=== PATIENT | female | born 1955 | race Caucasian/White ===

== ENCOUNTER 2019-02-24 07:00 | Day surgery (SDC) | payer MEDICARE ==
[2019-02-24] MEDS ORDERED: Sodium Chloride 0.9% 1,000 ML IV SCH (07:30)
[2019-02-24] MEDS ORDERED: Midazolam 1 MG/ML 2 ML SDV ONE (07:38)
[2019-02-24] MEDS ORDERED: fentaNYL 100 MCG/2 ML SDV ONE (07:38)
[2019-02-24] MEDS ORDERED: Propofol 200 MG/20 ML SDV ONE ×2 (07:38→08:28)
--- NOTE | 2019-02-24 12:42 | OR ---
DATE OF PROCEDURE: 02/24/2019 SURGEON: Cal Vieira MD PROCEDURE: Colonoscopy. FINDINGS: 1. Sigmoid colon polyp, completely removed using snare. 2. Diverticulosis, mild, diffuse throughout entire colon. COMPLICATIONS: None. 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 ANESTHESIA: MAC. PREOPERATIVE DIAGNOSIS: Family history of colorectal cancer. POSTOPERATIVE DIAGNOSIS: Family history of colorectal cancer. RISKS: Risks, benefits, alternatives, and limitations including, but not limited to, infection, bleeding, and perforation were explained to the patient who wished to proceed. PROCEDURE IN DETAIL: The patient was placed in left lateral decubitus position. Digital rectal exam was performed without abnormality. The scope was introduced and advanced atraumatically to the ileocecal valve. Photo was taken of the appendiceal orifice. The scope was brought back to the ascending, transverse, descending colon, and retroflexed. The aforementioned polyp was then identified and completely removed using snare. Diverticulosis was described as mild, diffuse throughout the entire colon. No evidence of diverticulitis or any other abnormality. No abnormality on retroflex. The patient tolerated the procedure well. Cal Vieira MD /[id number]
== END 2019-02-24 10:20 | disposition home or self-care (01) ==
LOC: JP.SDS 07:00
PROVIDERS: ATTEND Surgery
DX: Z12.11 Encounter for screening for malignant neoplasm of colon (principal); K57.30 Diverticulosis of large intestine without perforation or abscess without bleeding; K63.5 Polyp of colon; F17.210 Nicotine dependence, cigarettes, uncomplicated; J44.9 Chronic obstructive pulmonary disease, unspecified; Z80.0 Family history of malignant neoplasm of digestive organs
CPT/HCPCS: 45385; J2250; J2704; J3010; J7030; 88305

== ENCOUNTER 2019-07-25 11:46 | Inpatient (IN) | payer MEDICARE ==
[2019-07-25] MEDS ORDERED: Acetaminophen 325 MG Tab PO PRN (12:36)
[2019-07-25] MEDS ORDERED: Ondansetron 4 MG/2 ML SDV IV PRN (12:36)
[2019-07-25] MEDS ORDERED: Magnesium Hydroxide 400 MG/5 ML Susp 30 ML Cup PO PRN (12:36)
[2019-07-25] MEDS ORDERED: Ondansetron 4 MG Tab.DIS PO PRN (12:36)
[2019-07-25] MEDS ORDERED: Sodium Chloride 0.9% 10 ML Syringe FLUSH PRN (12:36)
[2019-07-25] MEDS ORDERED: Melatonin 3 MG Tab PO PRN (12:36)
[2019-07-25] MEDS ORDERED: LORazepam 2 MG/ML SDV IVPUSH PRN (12:36)
[2019-07-25] MEDS ORDERED: Benzonatate 100 MG Cap PO PRN (12:39)
[2019-07-25] MEDS ORDERED: Naproxen 250 MG Tab PO PRN (12:39)
[2019-07-25] MEDS ORDERED: guaiFENesin/Dextromethorphan 100-10 MG/5 ML Soln 10 ML Cup PO PRN (12:39)
[2019-07-25] MEDS ORDERED: predniSONE 20 MG Tab PO ONE (12:41)
[2019-07-25] MEDS ORDERED: Azithromycin 250 MG Tab PO SCH (12:45)
--- NOTE | 2019-07-25 12:46 | PCM.HP.2 ---
H&P History of Present Illness - General Date of Service: 07/25/19 Admit Problem/Dx: Admission Diagnosis/Problem Admission Diagnosis/Problem Right lower lobe pneumonia Source of Information: Patient, Provider History Limitations: Reports: No Limitations - History of Present Illness Initial Comments - Free Text/Narative: CC: I [facility] HPI: Balbina presents as a direct admission from the clinic. She presented there today with complaints of sinus congestion, shortness of breath and productive cough. Symptoms have been present for approximately 1 week and have been slowly getting worse. She has had increasing amounts of sputum with a variety of different colors including green, huber and yellow. Shortness of breath has progressed to the point that she is short of breath with any activity. She is mildly short of breath even at rest. She does have home oxygen which she normally only uses at night but has been using it 24 hours a day for the past couple of days. No complaints of chest pain. No obvious subjective or objective fevers that she is experienced. She does have some nausea but no vomiting. Appetite is okay but energy is significantly decreased. No change in bowel or bladder habits. She has diffuse arthralgias that are slightly worse than baseline but no myalgias. had similar but much more mild symptoms just over a week ago and has resolved very quickly. She was seen in the clinic and noted to be hypoxic even with supplemental oxygen. White count is mildly elevated. Chest x-ray suggested several small patchy areas of possible pneumonia. She was wheezing. She was sent for admission and further management. - Related Data Allergies/Adverse Reactions: Allergies Allergy/AdvReac Type Severity Reaction Status Date / Time adhesive tape Allergy Rash Verified 02/24/19 07:22 ciprofloxacin Allergy Indigestion Verified 02/24/19 07:22 ibandronate sodium Allergy Other Verified 02/24/19 07:22 [From Boniva] Iodinated Contrast Media Allergy Hives Verified 07/25/19 11:51 pseudoephedrine Allergy Tachycardia Verified 02/24/19 07:22 Home Medications: Home Meds Albuterol Sulfate [Proair Hfa] 1 - 2 puff IH Q4H PRN 02/22/19 [History] Albuterol/Ipratropium [DuoNeb 3.0-0.5 MG/3 ML] 3 ml INH Q6H PRN 02/22/19 [ History] Aspirin [Halfprin] 81 mg PO DAILY 02/22/19 [History] Cholecalciferol (Vitamin D3) [Vitamin D3] 5,000 unit PO .4X/WEEK 02/22/19 [ History] Clobetasol Propionate [Temovate Cream] 1 applic TP BID 02/22/19 [History] Gabapentin [Neurontin] 300 mg PO BEDTIME 02/22/19 [History] Hydroxychloroquine Sulfate [Plaquenil] 200 mg PO SUSA 02/22/19 [History] Hydroxychloroquine [Plaquenil] 400 mg PO MOTUWETHFR 02/22/19 [History] Loratadine [Claritin] 10 mg PO DAILY 02/22/19 [History] guaiFENesin [Guaifenesin] 400 mg PO DAILY 02/22/19 [History] Past Medical History HEENT History: Reports: Allergic Rhinitis Respiratory History: Reports: Bronchitis, Recurrent, COPD, Pneumonia, Recurrent , Other (See Below) Other Respiratory History: home O2 at night Gastrointestinal History: Reports: Hemorrhoids Genitourinary History: Reports: UTI, Recurrent RN PSYCHIATRIC History: Reports: Musculoskeletal History: Reports: Arthritis, RA Neurological History: Reports: Headaches, Chronic Immunologic History: Reports: Other (See Below) Other Immunologic History: Lupus Dermatologic History: Reports: Other (See Below) Other Dermatologic History: dry skin, cracking on hands and foot - Infectious Disease History Infectious Disease History: Reports: Chicken Pox - Past Surgical History HEENT Surgical History: Reports: Cataract Surgery, Tonsillectomy GI Surgical History: Reports: Appendectomy, Cholecystectomy, Lysis of Adhesions Female Surgical History: Reports: Tubal Ligation Social & Family History - Family History Respiratory: Reports: COPD - Tobacco Use Smoking Status *Q: Former Smoker Tobacco Use Within Last Twelve Months: Cigarettes Used Tobacco, but Quit: Yes - Caffeine Use Caffeine Use: Reports: Coffee - Alcohol Use Alcohol Use History: No - Recreational Drug Use Recreational Drug Use: No Drug Use in Last 12 Months: No H&P Review of Systems - Review of Systems: Review Of Systems: See Below Free Text/Narrative: A complete 12 point review of systems was obtained. Pertinent positives and negatives are noted in the history of present illness. All other systems were reviewed and were negative except as noted. Exam - Exam Exam: See Below - Vital Signs Vital Signs: Last Vital Signs Temp 36.8 C 07/25/19 12:03 Pulse 98 07/25/19 12:03 Resp 18 07/25/19 12:03 BP 158/85 H 07/25/19 12:03 Pulse Ox 98 07/25/19 12:03 - Exam Quality Assessment: Supplemental Oxygen General: Alert, Oriented, Cooperative. No: Mild Distress HEENT: Conjunctiva Clear, Mucosa Moist & [place]. No: Scleral Icterus Neck: Supple, Trachea Midline. No: Lymphadenopathy Lungs: Normal Respiratory Effort, Crackles (right lung base), Wheezing (mild diffuse inspiratory and moderate diffuse expiratory ) Cardiovascular: Regular Rate, Regular Rhythm. No: Systolic Murmur GI/Abdominal Exam: Normal Bowel Sounds, Soft, Non-Tender, No Distention Back Exam: Normal Inspection, Full Range of Motion Extremities: No Pedal Edema. No: Increased Warmth Peripheral Pulses: 2+: Dorsalis Pedis (L), Dorsalis Pedis (R) Skin: Warm, Dry Neuro Extensive - Mental Status: Alert, Oriented x3, Nl Response to Commands Neuro Extensive - Motor, Sensory, Reflexes: No: Dysarthria, Abnormal Motor, Tremor Psychiatric: Alert, Normal Affect - Patient Data Lab Results Last 24 hrs: WBC 12,000 Creatinine 0.8 Potassium 4.4 Imaging Impressions Last 24 hrs: CXR-faint right-sided patchy opacities most notable in the right lower lateral chest. Also a small area on the left.. No effusions. No obvious masses Sepsis Event Note - Focused Exam Vital Signs: Vital Signs Temp Pulse Resp BP Pulse Ox 07/25/19 12:03 36.8 C 98 18 158/85 H 98 Date Exam was Performed: 07/25/19 Time Exam was Performed: 13:42 *Q Meaningful Use (ADM) - VTE Risk Assess *Q Each Risk Factor Represents 1 Point: Serious lung disease including pneumonia, Abnormal Pulmonary Function (COPD) Total Score 1 Point Risk Factors: 2 Each Risk Factor Represents 2 Points: Age 60 - 74 Years Total Score 2 Point Risk Factors: 2 Each Risk Factor Represents 3 Points: None Total Score 3 Point Risk Factors: 0 Each Risk Factor Represents 5 Points: None Total Score 5 Point Risk Factors: 0 Venous Thromboembolism Risk Factor Score *Q: 4 - Problem List (1) Right lower lobe pneumonia SNOMED Code(s): 697085095 ICD Code: J18.9 - PNEUMONIA, UNSPECIFIED ORGANISM Status: Acute Current Visit: Yes Qualifiers: Pneumonia type: due to unspecified organism Qualified Code(s): J18.9 - Pneumonia, unspecified organism (2) Acute exacerbation of chronic obstructive pulmonary disease (COPD) SNOMED Code(s): 887540818 ICD Code: J44.1 - CHRONIC OBSTRUCTIVE PULMONARY DISEASE W (ACUTE) EXACERBATION Status: Acute Current Visit: Yes (3) Acute respiratory failure with hypoxia SNOMED Code(s): 84956961, 571963512 ICD Code: J96.01 - ACUTE RESPIRATORY FAILURE WITH HYPOXIA Status: Acute Current Visit: Yes (4) SLE (systemic lupus erythematosus) SNOMED Code(s): 46695673 ICD Code: M32.9 - SYSTEMIC LUPUS ERYTHEMATOSUS, UNSPECIFIED Status: Chronic Current Visit: Yes Qualifiers: Systemic lupus erythematosus type: other Systemic lupus erythematosus organ involvement: unspecified Qualified Code(s): M32.8 - Other forms of systemic lupus erythematosus (5) Rheumatoid arthritis SNOMED Code(s): 78843019 ICD Code: M06.9 - RHEUMATOID ARTHRITIS, UNSPECIFIED Status: Chronic Current Visit: Yes Qualifiers: Rheumatoid arthritis location: multiple sites Rheumatoid factor presence: unspecified presence Qualified Code(s): M06.9 - Rheumatoid arthritis, unspecified Problem List Initiated/Reviewed/Updated: Yes Orders Last 24hrs: Active Orders 24 hr Category Date Time Status Patient Status [ADT] Routine ADT 07/25/19 12:36 Ordered Antiembolic Devices [RC] .Routine Care 07/25/19 12:36 Ordered Intake and Output [RC] QSHIFT Care 07/25/19 12:36 Ordered Notify Provider Vital Signs [RC] ASDIRECTED Care 07/25/19 12:36 Ordered Oxygen Therapy [RC] PRN Care 07/25/19 12:36 Ordered RT Aerosol Therapy [RC] ASDIRECTED Care 07/25/19 12:38 Ordered Up With Assistance [RC] ASDIRECTED Care 07/25/19 12:36 Ordered VTE/DVT Education [RC] Per Unit Routine Care 07/25/19 12:36 Ordered Vital Signs [RC] Q4H Care 07/25/19 12:36 Ordered Regular Diet [DIET] Diet 07/25/19 Dinner Active BASIC METABOLIC PANEL,BMP [CHEM] AM Lab 07/26/19 05:11 Ordered CBC W/O DIFF,HEMOGRAM [HEME] AM Lab 07/26/19 05:11 Ordered CULTURE RESPIRATORY + SMEAR [RM] Routine Lab 07/25/19 12:38 Ordered Acetaminophen [Tylenol] Med 07/25/19 12:36 Ordered 650 mg PO Q4H PRN Albuterol [Proventil Neb Soln] Med 07/25/19 12:36 Ordered 2.5 mg NEB Q4H PRN Albuterol/Ipratropium [DuoNeb 3.0-0.5 MG/3 ML] Med 07/25/19 16:00 Ordered 3 ml NEB QID Azithromycin [Zithromax] Med 07/25/19 12:45 Ordered 500 mg PO DAILY Benzonatate [Tessalon Perles] Med 07/25/19 12:39 Ordered 100 mg PO TID PRN Dextromethorphan/guaiFENesin [Robitussin DM] Med 07/25/19 12:39 Ordered 10 ml PO Q4H PRN Docusate Sodium/Sennosides [Senna Plus] Med 07/25/19 12:36 Ordered 1 tab PO BID PRN LORazepam [Ativan] Med 07/25/19 12:36 Ordered 0.5 mg IVPUSH Q4H PRN Lactobacillus Rhamnosus GG [Culturelle] Med 07/25/19 21:00 Ordered 1 cap PO BID Magnesium Hydroxide [Milk of Magnesia] Med 07/25/19 12:36 Ordered 30 ml PO Q12H PRN Melatonin Med 07/25/19 12:36 Ordered 9 mg PO BEDTIME PRN Naproxen [Naprosyn] Med 07/25/19 12:39 Ordered 250 mg PO Q12HR PRN Ondansetron [Zofran ODT] Med 07/25/19 12:36 Ordered 4 mg PO Q6H PRN Ondansetron [Zofran] Med 07/25/19 12:36 Ordered 4 mg IV Q6H PRN Sodium Chloride 0.9% [Saline Flush] Med 07/25/19 12:36 Ordered 10 ml FLUSH ASDIRECTED PRN cefTRIAXone [Rocephin] 1 gm Med 07/25/19 12:45 Ordered Sodium Chloride 0.9% [Normal Saline] 50 ml IV Q24H predniSONE Med 07/25/19 12:41 Once 40 mg PO ONETIME ONE predniSONE Med 07/26/19 08:00 Ordered 40 mg PO WITHBREAKFAST Saline Lock Insert [OM.PC] Urgent Oth 07/25/19 12:36 Ordered Sequential Compression Device [OM.PC] Routine Oth 07/25/19 12:36 Ordered Resuscitation Status Routine Resus Stat 07/25/19 12:36 Ordered Assessment/Plan Comment:: ASSESSMENT AND PLAN - Right lower lobe pneumonia-complicated by acute respiratory failure with hypoxia. She is very symptomatic with even minimal activity. She is hypoxic beyond baseline since she normally does not need oxygen during the day. Symptoms have progressed. No evidence for sepsis. Bacterial cause is suspected. -Antibiotic coverage with doxycycline and ceftriaxone -Scheduled and as needed nebulizers -Steroids as below -Sputum culture if able -Supplement oxygen as needed -Symptomatic management of cough Acute exacerbation of COPD-secondary to pneumonia as discussed above. Significant wheezing and poor airflow with hypoxia. -Prednisone 40 mg now and then 40 mg daily -Nebulizers and additional management as above SLE and RA-symptoms are near baseline at this time. Hopefully the prednisone will help decrease her arthralgias. -Continue hydroxychloroquine History of tobacco dependence-she has been abstinent for 9 days. Maintenance issues - - DVT prophylaxis -mechanical - GI prophylaxis -not indicated - Nutrition -regular - Lutz catheter -not indicated CODE STATUS -full code Admission justification -this patient will be admitted for inpatient services and is medically appropriate meeting medical necessity for inpatient admission as outlined in my documentation. I reasonably expect the patient will require inpatient services that span a period time over 2 midnights. I reasonably expect this patient to be discharged or transferred within 96 hours [facility]. Disposition -I would anticipate discharge home after the hospital stay Primary care physician -Dr Manuel Ramirez M.D. - Mortality Measure Prognosis:: Good
[2019-07-25] MEDS ORDERED: cefTRIAXone 1 GM in Sodium Chloride 0.9% 50 ML IV SCH (13:00)
[2019-07-25] MEDS ORDERED: Doxycycline 100 MG Cap PO SCH (13:45)
[2019-07-25] MEDS: cefTRIAXone 1 GM in Sodium Chloride 0.9% 50 ML IV SCH (13:55)
[2019-07-25] MEDS: Albuterol/Ipratropium 3.0-0.5 MG/3 ML Neb Soln NEB SCH ×2 (14:56→20:13)
[2019-07-25] MEDS: Doxycycline 100 MG Cap PO SCH ×2 (15:20→20:13)
[2019-07-25] MEDS: Hydroxychloroquine 200 MG Tab PO SCH (15:20)
[2019-07-25] MEDS: Gabapentin 300 MG Cap PO SCH (20:13)
[2019-07-25] MEDS: Lactobacillus Rhamnosus GG (Probiotic) Cap PO SCH (20:13)
[2019-07-26] MEDS: Albuterol 0.083% 2.5 MG/3 ML Neb Soln NEB PRN (04:20)
[2019-07-26] MEDS: Albuterol/Ipratropium 3.0-0.5 MG/3 ML Neb Soln NEB SCH ×4 (07:20→20:53)
[2019-07-26] MEDS: Lactobacillus Rhamnosus GG (Probiotic) Cap PO SCH ×2 (08:15→20:53)
[2019-07-26] MEDS: Loratadine 10 MG Tab PO SCH (08:15)
[2019-07-26] MEDS: Doxycycline 100 MG Cap PO SCH ×2 (08:15→20:53)
[2019-07-26] MEDS: Aspirin 81 MG Tab.EC PO SCH (08:15)
[2019-07-26] MEDS: predniSONE 20 MG Tab PO SCH (08:15)
[2019-07-26] MEDS: Hydroxychloroquine 200 MG Tab PO SCH (09:55)
--- NOTE | 2019-07-26 10:22 | PCM.PN ---
- General Info Date of Service: 07/26/19 Subjective Update: No acute events overnight. No fevers. Still requiring supplemental oxygen but less today than yesterday. Shortness of breath is better but still not anywhere near back to baseline. Cough is better. She was able to get some sleep. Appetite is good. Nausea is better but not quite resolved. Functional Status: Reports: Pain Controlled, Tolerating Diet - Review of Systems General: Reports: Weakness. Denies: Fever Pulmonary: Reports: Shortness of Breath - Patient Data Vitals - Most Recent: Last Vital Signs Temp 36.3 C 07/26/19 07:54 Pulse 79 07/26/19 07:54 Resp 18 07/26/19 07:54 BP 119/52 L 07/26/19 07:54 Pulse Ox 99 07/26/19 07:54 Weight - Most Recent: 71.9 kg I&O - Last 24 Hours: Intake & Output 07/25/19 07/26/19 07/26/19 22:59 06:59 14:59 Intake Total 50 240 300 Output Total 650 350 300 Balance -600 -110 0 Lab Results Last 24 Hours: Laboratory Results - last 24 hr 07/26/19 07/26/19 Range/Units 05:30 05:30 WBC 12.6 H (4.5-11.0) K/uL RBC 4.83 (3.30-5.50) M/uL Hgb 13.1 (12.0-15.0) g/dL Hct 42.2 (36.0-48.0) % MCV 87 (80-98) fL MCH 27 (27-31) pg MCHC 31 L (32-36) % Plt Count 263 (150-400) K/uL Sodium 141 (140-148) mmol/L Potassium 4.2 (3.6-5.2) mmol/L Chloride 102 (100-108) mmol/L Carbon Dioxide 34 H (21-32) mmol/L Anion Gap 9.2 (5.0-14.0) mmol/L BUN 10 (7-18) mg/dL Creatinine 0.8 (0.6-1.0) mg/dL Est Cr Clr Drug Dosing 60.31 mL/min Estimated GFR (MDRD) > 60 (>60) Glucose 152 H (74-106) mg/dL Calcium 8.5 (8.5-10.1) mg/dL Cory Results Last 24 Hours: Microbiology 07/25/19 18:06 Gram Stain - Final Sputum - Expectorated Med Orders - Current: Current Medications Acetaminophen (Tylenol) 650 mg PO Q4H PRN PRN Reason: Pain (Mild 1-3)/fever Albuterol (Proventil Neb Soln) 2.5 mg NEB Q4H PRN PRN Reason: Shortness Of Breath/wheezing Last Admin: 07/26/19 04:20 Dose: 2.5 mg Albuterol/Ipratropium (Duoneb 3.0-0.5 Mg/3 Ml) 3 ml NEB QIDRT [facility] Last Admin: 07/26/19 07:20 Dose: 3 ml Aspirin (Halfprin) 81 mg PO DAILY [facility] Last Admin: 07/26/19 08:15 Dose: 81 mg Benzonatate (Tessalon Perles) 100 mg PO TID PRN PRN Reason: Cough Doxycycline Hyclate (Vibramycin) 100 mg PO BID [facility] Last Admin: 07/26/19 08:15 Dose: 100 mg Gabapentin (Neurontin) 300 mg PO BEDTIME [facility] Last Admin: 07/25/19 20:13 Dose: 300 mg Guaifenesin/Dextromethorphan (Robitussin Dm) 10 ml PO Q4H PRN PRN Reason: Cough Hydroxychloroquine Sulfate (Plaquenil) 400 mg PO MoTuWeThFr@0900 [facility] Last Admin: 07/26/19 09:55 Dose: 400 mg Hydroxychloroquine Sulfate (Plaquenil) 200 mg PO SuSa@0900 [facility] Ceftriaxone Sodium 1 gm/ (Sodium Chloride) 50 mls @ 100 mls/hr IV Q24H [facility] Last Admin: 07/25/19 13:55 Dose: 100 mls/hr Lactobacillus Rhamnosus (Culturelle) 1 cap PO BID [facility] Last Admin: 07/26/19 08:15 Dose: 1 cap Loratadine (Claritin) 10 mg PO DAILY [facility] Last Admin: 07/26/19 08:15 Dose: 10 mg Lorazepam (Ativan) 0.5 mg IVPUSH Q4H PRN PRN Reason: Nausea/Vomiting Magnesium Hydroxide (Milk Of Magnesia) 30 ml PO Q12H PRN PRN Reason: Constipation Melatonin (Melatonin) 9 mg PO BEDTIME PRN PRN Reason: Sleep Naproxen (Naprosyn) 250 mg PO Q12H PRN PRN Reason: Joint pain/Headache Ondansetron HCl (Zofran Odt) 4 mg PO Q6H PRN PRN Reason: Nausea able to take PO Ondansetron HCl (Zofran) 4 mg IV Q6H PRN PRN Reason: Nausea/Vomiting Prednisone (Prednisone) 40 mg PO WITHBREAKFAST [facility] Last Admin: 07/26/19 08:15 Dose: 40 mg Senna/Docusate Sodium (Senna Plus) 1 tab PO BID PRN PRN Reason: Constipation Sodium Chloride (Saline Flush) 10 ml FLUSH ASDIRECTED PRN PRN Reason: Keep Vein Open Discontinued Medications Azithromycin (Zithromax) 500 mg PO DAILY [facility] Last Admin: 07/25/19 19:49 Dose: Not Given Prednisone (Prednisone) 40 mg PO ONETIME ONE Stop: 07/25/19 12:42 Last Admin: 07/25/19 13:55 Dose: 40 mg - Exam Quality Assessment: Supplemental Oxygen General: Alert, Oriented, Cooperative, No Acute Distress Lungs: Wheezing (mild end exp ). No: Normal Respiratory Effort (mild increased work of breathing ), Crackles Cardiovascular: Regular Rate, Regular Rhythm GI/Abdominal Exam: Soft, No Distention Extremities: No Pedal Edema Psy/Mental Status: Alert, Normal Affect Sepsis Event Note - Evaluation Sepsis Screening Result: No Definite Risk - Focused Exam Vital Signs: Vital Signs Temp Pulse Resp BP Pulse Ox 07/26/19 07:54 36.3 C 79 18 119/52 L 99 07/26/19 07:20 72 07/26/19 03:34 35.8 C L 72 18 114/56 L 99 07/25/19 22:32 36.4 C 76 16 134/70 98 Date Exam was Performed: 07/26/19 Time Exam was Performed: 10:36 - Problem List & Annotations (1) Right lower lobe pneumonia SNOMED Code(s): 881873268 Code(s): J18.9 - PNEUMONIA, UNSPECIFIED ORGANISM Status: Acute Current Visit: Yes Qualifiers: Pneumonia type: due to unspecified organism Qualified Code(s): J18.9 - Pneumonia, unspecified organism (2) Acute exacerbation of chronic obstructive pulmonary disease (COPD) SNOMED Code(s): 148049121 Code(s): J44.1 - CHRONIC OBSTRUCTIVE PULMONARY DISEASE W (ACUTE) EXACERBATION Status: Acute Current Visit: Yes (3) Acute respiratory failure with hypoxia SNOMED Code(s): 35345606, 470460361 Code(s): J96.01 - ACUTE RESPIRATORY FAILURE WITH HYPOXIA Status: Acute Current Visit: Yes (4) SLE (systemic lupus erythematosus) SNOMED Code(s): 65422933 Code(s): M32.9 - SYSTEMIC LUPUS ERYTHEMATOSUS, UNSPECIFIED Status: Chronic Current Visit: Yes Qualifiers: Systemic lupus erythematosus type: other Systemic lupus erythematosus organ involvement: unspecified Qualified Code(s): M32.8 - Other forms of systemic lupus erythematosus (5) Rheumatoid arthritis SNOMED Code(s): 58163174 Code(s): M06.9 - RHEUMATOID ARTHRITIS, UNSPECIFIED Status: Chronic Current Visit: Yes Qualifiers: Rheumatoid arthritis location: multiple sites Rheumatoid factor presence: unspecified presence Qualified Code(s): M06.9 - Rheumatoid arthritis, unspecified - Problem List Review Problem List Initiated/Reviewed/Updated: Yes - My Orders Last 24 Hours: My Active Orders 07/25/19 12:36 Patient Status [ADT] Routine Antiembolic Devices [RC] .Routine Intake and Output [RC] QSHIFT Notify Provider Vital Signs [RC] ASDIRECTED Oxygen Therapy [RC] PRN Up With Assistance [RC] ASDIRECTED VTE/DVT Education [RC] Per Unit Routine Vital Signs [RC] Q4H Acetaminophen [Tylenol] 650 mg PO Q4H PRN Albuterol [Proventil Neb Soln] 2.5 mg NEB Q4H PRN Docusate Sodium/Sennosides [Senna Plus] 1 tab PO BID PRN LORazepam [Ativan] 0.5 mg IVPUSH Q4H PRN Magnesium Hydroxide [Milk of Magnesia] 30 ml PO Q12H PRN Melatonin 9 mg PO BEDTIME PRN Ondansetron [Zofran ODT] 4 mg PO Q6H PRN Ondansetron [Zofran] 4 mg IV Q6H PRN Sodium Chloride 0.9% [Saline Flush] 10 ml FLUSH ASDIRECTED PRN Saline Lock Insert [OM.PC] Urgent Sequential Compression Device [OM.PC] Routine Resuscitation Status Routine 07/25/19 12:38 RT Aerosol Therapy [RC] ASDIRECTED 07/25/19 12:39 Benzonatate [Tessalon Perles] 100 mg PO TID PRN Dextromethorphan/guaiFENesin [Robitussin DM] 10 ml PO Q4H PRN Naproxen [Naprosyn] 250 mg PO Q12H PRN 07/25/19 13:30 cefTRIAXone [Rocephin] 1 gm Sodium Chloride 0.9% [Normal Saline] 50 ml IV Q24H 07/25/19 14:00 Hydroxychloroquine [Plaquenil] 400 mg PO MoTuWeThFr@0900 07/25/19 15:00 Albuterol/Ipratropium [DuoNeb 3.0-0.5 MG/3 ML] 3 ml NEB QIDRT Doxycycline [Vibramycin] 100 mg PO BID 07/25/19 18:06 CULTURE RESPIRATORY + SMEAR [RM] Routine 07/25/19 21:00 Gabapentin [Neurontin] 300 mg PO BEDTIME Lactobacillus Rhamnosus GG [Culturelle] 1 cap PO BID 07/25/19 Dinner Regular Diet [DIET] 07/26/19 08:00 predniSONE 40 mg PO WITHBREAKFAST 07/26/19 09:00 Aspirin [Halfprin] 81 mg PO DAILY Loratadine [Claritin] 10 mg PO DAILY 07/30/19 09:00 Hydroxychloroquine [Plaquenil] 200 mg PO SuSa@09 - Plan Plan:: ASSESSMENT AND PLAN - Right lower lobe pneumonia-complicated by acute respiratory failure with hypoxia. Shortness of breath is better. Still requiring supplemental oxygen. Gram stain of respiratory culture did show a few gram-positive cocci and gram- positive rods blood culture is pending. No fevers. -Antibiotic coverage with doxycycline and ceftriaxone -Scheduled and as needed nebulizers -Steroids as below -Follow-up sputum culture -Supplement oxygen as needed -Symptomatic management of cough Acute exacerbation of COPD-secondary to pneumonia as discussed above. Wheezing is much better today. -Prednisone 40 mg daily -Nebulizers and additional management as above SLE and RA-symptoms are near baseline at this time. -Continue hydroxychloroquine History of tobacco dependence-she has been abstinent for 10 days. Maintenance issues - - DVT prophylaxis -mechanical - GI prophylaxis -not indicated - Nutrition -regular Disposition -I would anticipate discharge home after the hospital stay Etienne Ramirez M.D.
[2019-07-26] MEDS: cefTRIAXone 1 GM in Sodium Chloride 0.9% 50 ML IV SCH (13:15)
[2019-07-26] MEDS: Gabapentin 300 MG Cap PO SCH (20:53)
[2019-07-27] MEDS: Albuterol 0.083% 2.5 MG/3 ML Neb Soln NEB PRN ×2 (01:55→13:31)
[2019-07-27] MEDS: Albuterol/Ipratropium 3.0-0.5 MG/3 ML Neb Soln NEB SCH ×5 (07:33→22:27)
[2019-07-27] MEDS: predniSONE 20 MG Tab PO SCH (08:14)
[2019-07-27] MEDS: Hydroxychloroquine 200 MG Tab PO SCH (08:15)
[2019-07-27] MEDS: Aspirin 81 MG Tab.EC PO SCH (08:15)
[2019-07-27] MEDS: Doxycycline 100 MG Cap PO SCH ×3 (08:15→22:27)
[2019-07-27] MEDS: Loratadine 10 MG Tab PO SCH (08:15)
[2019-07-27] MEDS: Lactobacillus Rhamnosus GG (Probiotic) Cap PO SCH ×3 (08:15→22:27)
--- NOTE | 2019-07-27 09:37 | PCM.PN ---
- General Info Date of Service: 07/27/19 Subjective Update: No acute events overnight. Shortness of breath continues to improve. Cough is less but still productive for green sputum. Able to do some walking but does get winded with activity. Still requiring supplemental oxygen. Respiratory culture growing normal respiratory tristen at this point. No nausea. Appetite has been good. No fevers. Functional Status: Reports: Pain Controlled, Tolerating Diet - Review of Systems General: Denies: Fever Pulmonary: Reports: Shortness of Breath, Cough - Patient Data Vitals - Most Recent: Last Vital Signs Temp 35.8 C L 07/27/19 07:00 Pulse 80 07/27/19 07:33 Resp 16 07/27/19 07:00 BP 135/70 07/27/19 07:00 Pulse Ox 90 L 07/27/19 07:00 Weight - Most Recent: 71.9 kg I&O - Last 24 Hours: Intake & Output 07/26/19 07/27/19 07/27/19 22:59 06:59 14:59 Output Total 400 500 600 Balance -400 -500 -600 Cory Results Last 24 Hours: Microbiology 07/25/19 18:06 Gram Stain - Final Sputum - Expectorated Respiratory Culture - Preliminary NORMAL RESPIRATORY TRISTEN 1 DAY Med Orders - Current: Current Medications Acetaminophen (Tylenol) 650 mg PO Q4H PRN PRN Reason: Pain (Mild 1-3)/fever Albuterol (Proventil Neb Soln) 2.5 mg NEB Q4H PRN PRN Reason: Shortness Of Breath/wheezing Last Admin: 07/27/19 01:55 Dose: 2.5 mg Albuterol/Ipratropium (Duoneb 3.0-0.5 Mg/3 Ml) 3 ml NEB QIDRT [facility] Last Admin: 07/27/19 07:33 Dose: 3 ml Aspirin (Halfprin) 81 mg PO DAILY [facility] Last Admin: 07/27/19 08:15 Dose: 81 mg Benzonatate (Tessalon Perles) 100 mg PO TID PRN PRN Reason: Cough Doxycycline Hyclate (Vibramycin) 100 mg PO BID [facility] Last Admin: 07/27/19 08:15 Dose: 100 mg Gabapentin (Neurontin) 300 mg PO BEDTIME [facility] Last Admin: 07/26/19 20:53 Dose: 300 mg Guaifenesin/Dextromethorphan (Robitussin Dm) 10 ml PO Q4H PRN PRN Reason: Cough Hydroxychloroquine Sulfate (Plaquenil) 400 mg PO MoTuWeThFr@0900 [facility] Last Admin: 07/27/19 08:15 Dose: 400 mg Hydroxychloroquine Sulfate (Plaquenil) 200 mg PO SuSa@0900 [facility] Ceftriaxone Sodium 1 gm/ (Sodium Chloride) 50 mls @ 100 mls/hr IV Q24H [facility] Last Admin: 07/26/19 13:15 Dose: 100 mls/hr Lactobacillus Rhamnosus (Culturelle) 1 cap PO BID [facility] Last Admin: 07/27/19 08:15 Dose: 1 cap Loratadine (Claritin) 10 mg PO DAILY [facility] Last Admin: 07/27/19 08:15 Dose: 10 mg Lorazepam (Ativan) 0.5 mg IVPUSH Q4H PRN PRN Reason: Nausea/Vomiting Magnesium Hydroxide (Milk Of Magnesia) 30 ml PO Q12H PRN PRN Reason: Constipation Melatonin (Melatonin) 9 mg PO BEDTIME PRN PRN Reason: Sleep Naproxen (Naprosyn) 250 mg PO Q12H PRN PRN Reason: Joint pain/Headache Ondansetron HCl (Zofran Odt) 4 mg PO Q6H PRN PRN Reason: Nausea able to take PO Ondansetron HCl (Zofran) 4 mg IV Q6H PRN PRN Reason: Nausea/Vomiting Prednisone (Prednisone) 40 mg PO WITHBREAKFAST [facility] Last Admin: 07/27/19 08:14 Dose: 40 mg Senna/Docusate Sodium (Senna Plus) 1 tab PO BID PRN PRN Reason: Constipation Sodium Chloride (Saline Flush) 10 ml FLUSH ASDIRECTED PRN PRN Reason: Keep Vein Open Discontinued Medications Azithromycin (Zithromax) 500 mg PO DAILY [facility] Last Admin: 07/25/19 19:49 Dose: Not Given Prednisone (Prednisone) 40 mg PO ONETIME ONE Stop: 07/25/19 12:42 Last Admin: 07/25/19 13:55 Dose: 40 mg - Exam Quality Assessment: Supplemental Oxygen General: Alert, Oriented, Cooperative, No Acute Distress Lungs: Crackles (few right lower lung ), Wheezing (mild end exp, mostly on the left ). No: Normal Respiratory Effort (mild increase in work of breathing. Purse lip breathing ) Cardiovascular: Regular Rate, Regular Rhythm GI/Abdominal Exam: Soft, No Distention Extremities: No Pedal Edema. No: Increased Warmth Skin: Warm, Dry Psy/Mental Status: Alert, Normal Affect Sepsis Event Note - Evaluation Sepsis Screening Result: Sepsis Risk - Focused Exam Vital Signs: Vital Signs Temp Pulse Resp BP Pulse Ox 07/27/19 07:33 80 07/27/19 07:00 35.8 C L 75 16 135/70 90 L 07/27/19 03:12 36.2 C 80 18 123/69 93 L 07/26/19 22:34 36.6 C 99 16 121/98 H 93 L Date Exam was Performed: 07/27/19 Time Exam was Performed: 10:31 - Problem List & Annotations (1) Right lower lobe pneumonia SNOMED Code(s): 476058580 Code(s): J18.9 - PNEUMONIA, UNSPECIFIED ORGANISM Status: Acute Current Visit: Yes Qualifiers: Pneumonia type: due to unspecified organism Qualified Code(s): J18.9 - Pneumonia, unspecified organism (2) Acute exacerbation of chronic obstructive pulmonary disease (COPD) SNOMED Code(s): 908237886 Code(s): J44.1 - CHRONIC OBSTRUCTIVE PULMONARY DISEASE W (ACUTE) EXACERBATION Status: Acute Current Visit: Yes (3) Acute respiratory failure with hypoxia SNOMED Code(s): 22916813, 274123601 Code(s): J96.01 - ACUTE RESPIRATORY FAILURE WITH HYPOXIA Status: Acute Current Visit: Yes (4) SLE (systemic lupus erythematosus) SNOMED Code(s): 62326203 Code(s): M32.9 - SYSTEMIC LUPUS ERYTHEMATOSUS, UNSPECIFIED Status: Chronic Current Visit: Yes Qualifiers: Systemic lupus erythematosus type: other Systemic lupus erythematosus organ involvement: unspecified Qualified Code(s): M32.8 - Other forms of systemic lupus erythematosus (5) Rheumatoid arthritis SNOMED Code(s): 37133070 Code(s): M06.9 - RHEUMATOID ARTHRITIS, UNSPECIFIED Status: Chronic Current Visit: Yes Qualifiers: Rheumatoid arthritis location: multiple sites Rheumatoid factor presence: unspecified presence Qualified Code(s): M06.9 - Rheumatoid arthritis, unspecified - Problem List Review Problem List Initiated/Reviewed/Updated: Yes - My Orders Last 24 Hours: My Active Orders 07/26/19 09:00 Aspirin [Halfprin] 81 mg PO DAILY Loratadine [Claritin] 10 mg PO DAILY 07/30/19 09:00 Hydroxychloroquine [Plaquenil] 200 mg PO SuSa@0900 - Plan Plan:: ASSESSMENT AND PLAN - Right lower lobe pneumonia-complicated by acute respiratory failure with hypoxia. Slowly improving but still hypoxic and wheezing. Moving better air today. -Antibiotic coverage with doxycycline and ceftriaxone -Scheduled and as needed nebulizers -Steroids as below -Follow-up sputum culture -Supplement oxygen as needed, wean as able -Symptomatic management of cough Acute exacerbation of COPD-secondary to pneumonia as discussed above. Wheezing is much better today but not resolved. -Prednisone 40 mg daily -Nebulizers and additional management as above SLE and RA-symptoms are near baseline at this time. -Continue hydroxychloroquine History of tobacco dependence-she has been abstinent for 10 days. Maintenance issues - - DVT prophylaxis -mechanical - GI prophylaxis -not indicated - Nutrition -regular Disposition -I would anticipate discharge home after the hospital stay, hopefully in the next day or so Etienne Ramirez M.D.
[2019-07-27] MEDS: cefTRIAXone 1 GM in Sodium Chloride 0.9% 50 ML IV SCH (13:31)
[2019-07-27] MEDS: Gabapentin 300 MG Cap PO SCH ×2 (19:40→22:27)
[2019-07-28] MEDS: Albuterol 0.083% 2.5 MG/3 ML Neb Soln NEB PRN (01:26)
[2019-07-28] MEDS: Albuterol/Ipratropium 3.0-0.5 MG/3 ML Neb Soln NEB SCH ×3 (07:38→14:40)
[2019-07-28] MEDS: predniSONE 20 MG Tab PO SCH (08:21)
[2019-07-28] MEDS: Loratadine 10 MG Tab PO SCH (08:21)
[2019-07-28] MEDS: Hydroxychloroquine 200 MG Tab PO SCH (08:22)
[2019-07-28] MEDS: Lactobacillus Rhamnosus GG (Probiotic) Cap PO SCH (08:22)
[2019-07-28] MEDS: Aspirin 81 MG Tab.EC PO SCH (08:22)
[2019-07-28] MEDS: Doxycycline 100 MG Cap PO SCH (08:23)
--- NOTE | 2019-07-28 10:08 | PCM.DCSUM1 ---
Discharge Summary - Hospital Course Brief History: Ms. Jorgensen is a 64-year-old woman who was admitted through the emergency department with weakness, shortness of breath, cough, hypoxia, secondary to right lung pneumonia and COPD exacerbation. - Discharge Data Discharge Date: 07/28/19 Discharge Disposition: Home, Self-Care 01 Condition: Fair - Referral to Home Health Primary Care Physician: Saira Navarro PA-C - Discharge Diagnosis/Problem(s) (1) Right lower lobe pneumonia SNOMED Code(s): 268677756 ICD Code: J18.9 - PNEUMONIA, UNSPECIFIED ORGANISM Status: Acute Current Visit: Yes Qualifiers: Pneumonia type: due to unspecified organism Qualified Code(s): J18.9 - Pneumonia, unspecified organism (2) Acute exacerbation of chronic obstructive pulmonary disease (COPD) SNOMED Code(s): 830677123 ICD Code: J44.1 - CHRONIC OBSTRUCTIVE PULMONARY DISEASE W (ACUTE) EXACERBATION Status: Acute Current Visit: Yes (3) Acute respiratory failure with hypoxia SNOMED Code(s): 40172993, 240889467 ICD Code: J96.01 - ACUTE RESPIRATORY FAILURE WITH HYPOXIA Status: Acute Current Visit: Yes (4) SLE (systemic lupus erythematosus) SNOMED Code(s): 03492900 ICD Code: M32.9 - SYSTEMIC LUPUS ERYTHEMATOSUS, UNSPECIFIED Status: Chronic Current Visit: Yes Qualifiers: Systemic lupus erythematosus type: other Systemic lupus erythematosus organ involvement: unspecified Qualified Code(s): M32.8 - Other forms of systemic lupus erythematosus (5) Rheumatoid arthritis SNOMED Code(s): 04696410 ICD Code: M06.9 - RHEUMATOID ARTHRITIS, UNSPECIFIED Status: Chronic Current Visit: Yes Qualifiers: Rheumatoid arthritis location: multiple sites Rheumatoid factor presence: unspecified presence Qualified Code(s): M06.9 - Rheumatoid arthritis, unspecified - Patient Summary/Data Hospital Course: Ms. Jorgensen presented as a direct admission from the clinic. She presented there with complaints of sinus congestion, shortness of breath and productive cough. Symptoms have been present for approximately 1 week and have been slowly getting worse. She has had increasing amounts of sputum with a variety of different colors including green, huber and yellow. Shortness of breath has progressed to the point that she is short of breath with any activity. She is mildly short of breath even at rest. She does have home oxygen which she normally only uses at night but has been using it 24 hours a day for the past couple of days. No complaints of chest pain. No obvious subjective or objective fevers that she is experienced. She does have some nausea but no vomiting. had similar but much more mild symptoms just over a week ago and has resolved very quickly. She was seen in the clinic and noted to be hypoxic even with supplemental oxygen. White count is mildly elevated. Chest x -ray suggested several small patchy areas of possible pneumonia. She was wheezing. She was sent for admission and further management. On admission blood cultures were obtained and she was started on IV antibiotic therapy with ceftriaxone and doxycycline. She received supplemental oxygen as needed as well as nebulizer therapy and glucocorticoids. IV fluids were given for hydration. Over the next few days of her hospital stay she gradually improved, with no significant temperature elevations prior to discharge and normalization of her white blood cell count. At the time of discharge she continued to require supplemental oxygen and qualified for home oxygen with an oxygen saturation of 86% on July 26. She will be discharged home with an additional 4 days of oral antibiotic therapy with cefdinir and doxycycline. She will receive 3 additional days of oral prednisone 40 mg p.o. daily. Follow- up appointment will be scheduled with her primary care provider within 1 week. Activity will be as tolerated and she will resume her usual diet. - Patient Instructions Diet: Usual Diet as Tolerated Activity: As Tolerated Other/Special Instructions: Please schedule follow-up appointment with primary care provider within 1 week. Arrange for home oxygen 2 L/min via nasal cannula. - Discharge Plan *PRESCRIPTION DRUG MONITORING PROGRAM REVIEWED*: Not Applicable *COPY OF PRESCRIPTION DRUG MONITORING REPORT IN PATIENT YESENIA: Not Applicable Prescriptions/Med Rec: Cefdinir 300 mg PO BID #8 capsule Doxycycline [Vibramycin] 100 mg PO BID #8 cap Lactobacillus Rhamnosus GG [Culturelle] 1 cap PO BID #60 cap predniSONE 40 mg PO DAILY #6 tablet Home Medications: Home Meds Albuterol Sulfate [Proair Hfa] 1 - 2 puff IH Q4H PRN 02/22/19 [History] Albuterol/Ipratropium [DuoNeb 3.0-0.5 MG/3 ML] 3 ml INH Q6H PRN 02/22/19 [ History] Aspirin [Halfprin] 81 mg PO DAILY 02/22/19 [History] Cholecalciferol (Vitamin D3) [Vitamin D3] 5,000 unit PO .4X/WEEK 02/22/19 [ History] Clobetasol Propionate [Temovate Cream] 1 applic TP BID 02/22/19 [History] Gabapentin [Neurontin] 300 mg PO BEDTIME 02/22/19 [History] Hydroxychloroquine Sulfate [Plaquenil] 200 mg PO SUSA 02/22/19 [History] Hydroxychloroquine [Plaquenil] 400 mg PO MOTUWETHFR 02/22/19 [History] Loratadine [Claritin] 10 mg PO DAILY 02/22/19 [History] guaiFENesin [Guaifenesin] 400 mg PO DAILY 02/22/19 [History] Cefdinir 300 mg PO BID #8 capsule 07/28/19 [Rx] Doxycycline [Vibramycin] 100 mg PO BID #8 cap 07/28/19 [Rx] Lactobacillus Rhamnosus GG [Culturelle] 1 cap PO BID #60 cap 07/28/19 [Rx] predniSONE 40 mg PO DAILY #6 tablet 07/28/19 [Rx] Oxygen Flow Rate (L/min): 2 Maintain SPO2% less than: 92 Maintain SpO2% greater than: 88 - Discharge Summary/Plan Comment DC Time >30 min.: No - Patient Data Vitals - Most Recent: Last Vital Signs Temp 98.7 F 07/28/19 07:00 Pulse 94 07/28/19 08:04 Resp 18 07/28/19 07:00 BP 129/68 07/28/19 07:00 Pulse Ox 89 L 07/28/19 07:00 Weight - Most Recent: 158 lb 8.198 oz I&O - Last 24 hours: Intake & Output 07/27/19 07/28/19 07/28/19 22:59 06:59 14:59 Intake Total 100 480 Output Total 600 500 Balance -600 100 -20 PRAVEEN Results - Last 24 hrs: Microbiology 07/25/19 18:06 Gram Stain - Final Sputum - Expectorated Respiratory Culture - Final NORMAL RESPIRATORY JEANNETTE 2 DAYS Med Orders - Current: Current Medications Acetaminophen (Tylenol) 650 mg PO Q4H PRN PRN Reason: Pain (Mild 1-3)/fever Albuterol (Proventil Neb Soln) 2.5 mg NEB Q4H PRN PRN Reason: Shortness Of Breath/wheezing Last Admin: 07/28/19 01:26 Dose: 2.5 mg Albuterol/Ipratropium (Duoneb 3.0-0.5 Mg/3 Ml) 3 ml NEB QIDRT [facility] Last Admin: 07/28/19 07:38 Dose: 3 ml Aspirin (Halfprin) 81 mg PO DAILY [facility] Last Admin: 07/28/19 08:22 Dose: 81 mg Benzonatate (Tessalon Perles) 100 mg PO TID PRN PRN Reason: Cough Doxycycline Hyclate (Vibramycin) 100 mg PO BID [facility] Last Admin: 07/28/19 08:23 Dose: 100 mg Gabapentin (Neurontin) 300 mg PO BEDTIME [facility] Last Admin: 07/27/19 22:27 Dose: Not Given Guaifenesin/Dextromethorphan (Robitussin Dm) 10 ml PO Q4H PRN PRN Reason: Cough Hydroxychloroquine Sulfate (Plaquenil) 400 mg PO MoTuWeThFr@0900 [facility] Last Admin: 07/28/19 08:22 Dose: 400 mg Hydroxychloroquine Sulfate (Plaquenil) 200 mg PO SuSa@0900 [facility] Ceftriaxone Sodium 1 gm/ (Sodium Chloride) 50 mls @ 100 mls/hr IV Q24H [facility] Last Admin: 07/27/19 13:31 Dose: 100 mls/hr Lactobacillus Rhamnosus (Culturelle) 1 cap PO BID [facility] Last Admin: 07/28/19 08:22 Dose: 1 cap Loratadine (Claritin) 10 mg PO DAILY [facility] Last Admin: 07/28/19 08:21 Dose: 10 mg Lorazepam (Ativan) 0.5 mg IVPUSH Q4H PRN PRN Reason: Nausea/Vomiting Magnesium Hydroxide (Milk Of Magnesia) 30 ml PO Q12H PRN PRN Reason: Constipation Melatonin (Melatonin) 9 mg PO BEDTIME PRN PRN Reason: Sleep Naproxen (Naprosyn) 250 mg PO Q12H PRN PRN Reason: Joint pain/Headache Ondansetron HCl (Zofran Odt) 4 mg PO Q6H PRN PRN Reason: Nausea able to take PO Ondansetron HCl (Zofran) 4 mg IV Q6H PRN PRN Reason: Nausea/Vomiting Prednisone (Prednisone) 40 mg PO WITHBREAKFAST [facility] Last Admin: 07/28/19 08:21 Dose: 40 mg Senna/Docusate Sodium (Senna Plus) 1 tab PO BID PRN PRN Reason: Constipation Sodium Chloride (Saline Flush) 10 ml FLUSH ASDIRECTED PRN PRN Reason: Keep Vein Open Discontinued Medications Azithromycin (Zithromax) 500 mg PO DAILY [facility] Last Admin: 07/25/19 19:49 Dose: Not Given Prednisone (Prednisone) 40 mg PO ONETIME ONE Stop: 07/25/19 12:42 Last Admin: 07/25/19 13:55 Dose: 40 mg - Exam Quality Assessment: Reports: Supplemental Oxygen, DVT Prophylaxis General: Reports: Alert, Oriented, Cooperative, Mild Distress Lungs: Reports: Decreased Breath Sounds, Wheezing. Denies: Rales, Rhonchi, Rub Cardiovascular: Reports: Regular Rate, Regular Rhythm, No Murmurs GI/Abdominal Exam: Soft, Non-Tender, No Organomegaly, No Distention Extremities: Non-Tender, No Pedal Edema
[2019-07-28] MEDS: cefTRIAXone 1 GM in Sodium Chloride 0.9% 50 ML IV SCH (13:23)
[2019-07-30] MEDS ORDERED: Hydroxychloroquine 200 MG Tab PO SCH (09:00)
== END 2019-07-28 16:30 | disposition home or self-care (01) | DRG 193 ==
LOC: JP.MS 11:46
PROVIDERS: ADMIT Internal Medicine; ATTEND Internal Medicine
DX: J18.9 Pneumonia, unspecified organism (principal); J96.01 Acute respiratory failure with hypoxia; J44.0 Chronic obstructive pulmonary disease with (acute) lower respiratory infection; J44.1 Chronic obstructive pulmonary disease with (acute) exacerbation; M32.9 Systemic lupus erythematosus, unspecified; M06.9 Rheumatoid arthritis, unspecified; M19.90 Unspecified osteoarthritis, unspecified site; Z98.49 Cataract extraction status, unspecified eye; Z90.49 Acquired absence of other specified parts of digestive tract; Z79.82 Long term (current) use of aspirin; Z79.899 Other long term (current) drug therapy; Z88.1 Allergy status to other antibiotic agents; Z91.09 Other allergy status, other than to drugs and biological substances; Z88.8 Allergy status to other drugs, medicaments and biological substances; Z87.891 Personal history of nicotine dependence
CPT/HCPCS: 36415; 80048; 85027; 87070; 87205; 94640; A9270-GY; J0696; J7050; J7620-GY

== ENCOUNTER 2021-11-19 19:17 | Emergency (ER) | payer MEDICARE ==
[2021-11-19] MEDS ORDERED: Albuterol 0.083% 2.5 MG/3 ML Neb Soln NEB ONE (20:25)
[2021-11-19] MEDS ORDERED: predniSONE 20 MG Tab PO ONE (20:27)
[2021-11-19 21:21] LABS: CORONAVIRUS COVID-19 NAA NEGATIVE (NEGATIVE)
[2021-11-19] MEDS ORDERED: Doxycycline 100 MG Cap PO ONE (21:42)
== END 2021-11-20 00:15 | disposition home or self-care (01) ==
LOC: JP.ED 19:17
DX: J18.9 Pneumonia, unspecified organism (principal); D64.9 Anemia, unspecified; M32.9 Systemic lupus erythematosus, unspecified; M06.9 Rheumatoid arthritis, unspecified; J44.9 Chronic obstructive pulmonary disease, unspecified; R09.02 Hypoxemia; Z20.822 Contact with and (suspected) exposure to COVID-19; Z91.048 Other nonmedicinal substance allergy status; Z88.1 Allergy status to other antibiotic agents; Z88.8 Allergy status to other drugs, medicaments and biological substances
CPT/HCPCS: 0241U; 36415; 71046; 80048; 83880; 85025; 86140; 93005; 94640; 99285; A9270; J7512

== ENCOUNTER 2021-12-21 15:36 | Emergency (ER) | payer MEDICARE ==
[2021-12-21] MEDS ORDERED: Albuterol/Ipratropium 3.0-0.5 MG/3 ML Neb Soln NEB ONE (16:40)
== END 2021-12-21 18:45 | disposition home or self-care (01) ==
LOC: JP.ED 15:36
DX: J44.1 Chronic obstructive pulmonary disease with (acute) exacerbation (principal); I10 Essential (primary) hypertension; Z91.048 Other nonmedicinal substance allergy status; Z88.1 Allergy status to other antibiotic agents; Z91.041 Radiographic dye allergy status; Z79.899 Other long term (current) drug therapy; Z87.891 Personal history of nicotine dependence
CPT/HCPCS: 36415; 71046; 71046-26; 80048; 85025; 86140; 94640; 99285; J7620

== ENCOUNTER 2022-11-02 12:25 | Inpatient (IN) | payer MEDICARE ==
[2022-11-02] MEDS ORDERED: Sodium Chloride 0.9% 10 ML Syringe FLUSH PRN (13:44)
[2022-11-02] MEDS ORDERED: cefTRIAXone 1 GM in Sodium Chloride 0.9% 50 ML IV ONE (13:57)
[2022-11-02] MEDS ORDERED: methylPREDNISolone Sodium Succinate 125 MG/2 ML SDV IVPUSH ONE (13:58)
[2022-11-02] MEDS ORDERED: Albuterol 0.083% 2.5 MG/3 ML Neb Soln NEB ONE (13:58)
[2022-11-02 14:18] LABS: BICARBONATE,VENOUS 45.2 mmol/L; CARBOXYHEMOGLOBIN 3.3 % (0.0-1.6); METHEMOGLOBIN 0.7 %; O2 SATURATION VENOUS 84.6; OXYHEMOGLOBIN 81.2 %; PCO2 VENOUS 83.8 mm/Hg; PH,VENOUS 7.351 (7.350-7.450); PO2 VENOUS 51.9 mm/Hg; TOTAL HEMOGLOBIN 12.3 g/dL (12.0-16.0)
[2022-11-02 14:20] LABS: BASOPHILS PERCENT AUTO 0.2 % (0.1-1.3); EOSINOPHILS PERCENT AUTO 0.1 % (0.0-5.4); HEMATOCRIT 39.6 % (34.3-46.0); IMMATURE GRAN ABSOLUTE AUTO 0.04 K/uL (0.00-0.23); IMMATURE GRAN PERCENT AUTO 0.5 % (0.0-0.7); LYMPHOCYTES ABSOLUTE AUTO 0.41 K/uL (0.8-3.3); LYMPHOCYTES PERCENT AUTO 4.9 % (11.4-47.7); MEAN CORPUSCULAR HEMOGLOBIN 27.6 pg (31.6-35.5); MEAN CORPUSCULAR HGB CONC 30.3 g/dL (31.6-35.5); MEAN CORPUSCULAR VOLUME 91.2 fL (81.4-99.0); MONOCYTES ABSOLUTE AUTO 0.14 K/uL (0.20-0.90); MONOCYTES PERCENT AUTO 1.7 % (3.3-12.6); NEUTROPHILS ABSOLUTE AUTO 7.74 K/uL (1.0-7.6); NEUTROPHILS PERCENT AUTO 92.6 % (40.0-78.1); PLATELET COUNT,PLT 161 K/uL (130-375); RED BLOOD CELL COUNT 4.34 M/uL (3.77-5.24); WHITE BLOOD CELL COUNT,WBC 8.4 K/uL (3.2-11.0)
[2022-11-02 14:26] LABS: BASOPHILS ABSOLUTE AUTO 0.02 K/uL (0.00-0.10); EOSINOPHILS ABSOLUTE AUTO 0.01 K/uL (0.00-0.40)
[2022-11-02 14:40] LABS: BLOOD UREA NITROGEN,BUN 20 mg/dL (7-18); CALCIUM 8.8 mg/dL (8.5-10.1); CARBON DIOXIDE,CO2 44 mmol/L (21-32); CHLORIDE,CL 99 mmol/L (100-108); CREATININE 1.1 mg/dL (0.6-1.0); EST CRCL DRUG DOSING (CG) 42.18 mL/min; ESTIMATED GFR 56 mL/min (>60); GLUCOSE RANDOM 158 mg/dL (74-106); POTASSIUM,K 4.5 mmol/L (3.6-5.2); SODIUM,NA 144 mmol/L (140-148)
[2022-11-02 14:41] LABS: ANION GAP 5.5 mmol/L (5.0-14.0); C-REACTIVE PROTEIN < 0.05 mg/dL (0.0-0.3)
[2022-11-02] MEDS: Sodium Chloride 0.9% 1,000 ML IV SCH ×2 (15:19→17:06)
[2022-11-02] MEDS ORDERED: Sennosides/Docusate Sodium 50-8.6 MG Tab PO PRN (15:54)
[2022-11-02] MEDS ORDERED: Ondansetron 4 MG/2 ML SDV IV PRN (15:54)
[2022-11-02] MEDS ORDERED: Ondansetron 4 MG Tab.DIS PO PRN (15:54)
[2022-11-02] MEDS ORDERED: Magnesium Hydroxide 400 MG/5 ML Susp 30 ML Cup PO PRN (15:54)
[2022-11-02] MEDS ORDERED: oxyCODONE 5 MG Tab PO PRN (15:54)
[2022-11-02] MEDS ORDERED: Benzonatate 100 MG Cap PO PRN (16:05)
[2022-11-02] MEDS ORDERED: guaiFENesin 100 MG/5 ML Soln 10 ML UD Cup PO PRN (16:05)
[2022-11-02] MEDS ORDERED: Cholecalciferol (Vitamin D3) 25 MCG Tab PO SCH (16:15)
[2022-11-02] MEDS ORDERED: Sodium Chloride 0.45% 1,000 ML IV SCH (16:30)
[2022-11-02] MEDS: Acetaminophen 325 MG Tab PO PRN (16:51)
[2022-11-02] MEDS: Albuterol/Ipratropium 3.0-0.5 MG/3 ML Neb Soln NEB SCH ×2 (16:52→21:42)
[2022-11-02] MEDS: Enoxaparin 40 MG/0.4 ML Syringe SUBCUT SCH (16:52)
[2022-11-02] MEDS ORDERED: Losartan 25 MG Tab PO SCH (21:00)
[2022-11-02] MEDS ORDERED: Clobetasol 0.05% Crm 30 GM Tube TOP SCH (21:00)
[2022-11-02] MEDS: Lactobacillus Rhamnosus GG (Probiotic) Cap PO SCH (21:51)
[2022-11-02] MEDS: methylPREDNISolone Sodium Succinate 40 MG/1 ML SDV IVPUSH SCH (21:51)
[2022-11-02] MEDS: Gabapentin 300 MG Cap PO SCH (21:51)
[2022-11-02] MEDS: Melatonin 3 MG Tab PO SCH (21:58)
[2022-11-02] MEDS: guaiFENesin 600 MG Tab.ER PO SCH (22:01)
[2022-11-02] MEDS ORDERED: Clobetasol 0.05% Crm 30 GM Tube TOP PRN (22:21)
[2022-11-02] MEDS: Hydroxychloroquine 200 MG Tab PO SCH (23:03)
[2022-11-03] MEDS: Albuterol 0.083% 2.5 MG/3 ML Neb Soln NEB PRN (02:58)
[2022-11-03 05:02] LABS: HEMATOCRIT 37.7 % (34.3-46.0); HEMOGLOBIN 11.4 g/dL (11.2-15.5); MEAN CORPUSCULAR HEMOGLOBIN 27.7 pg (31.6-35.5); MEAN CORPUSCULAR HGB CONC 30.2 g/dL (31.6-35.5); MEAN CORPUSCULAR VOLUME 91.5 fL (81.4-99.0); RED BLOOD CELL COUNT 4.12 M/uL (3.77-5.24); WHITE BLOOD CELL COUNT,WBC 10.3 K/uL (3.2-11.0)
[2022-11-03 05:31] LABS: CALCIUM 8.6 mg/dL (8.5-10.1); CREATININE 0.9 mg/dL (0.6-1.0); EST CRCL DRUG DOSING (CG) 51.55 mL/min; PHOSPHORUS 4.5 mg/dL (2.5-4.9); TSH ULTRASENSITIVE 0.204 uIU/mL (0.358-3.740)
[2022-11-03] MEDS: Albuterol/Ipratropium 3.0-0.5 MG/3 ML Neb Soln NEB SCH ×4 (05:49→20:36)
[2022-11-03] MEDS: methylPREDNISolone Sodium Succinate 40 MG/1 ML SDV IVPUSH SCH ×2 (05:50→14:11)
[2022-11-03] MEDS: Pantoprazole 40 MG Tab.CR PO SCH (07:19)
[2022-11-03] MEDS: Lactobacillus Rhamnosus GG (Probiotic) Cap PO SCH ×2 (08:23→20:36)
[2022-11-03] MEDS: Losartan 25 MG Tab PO SCH (08:23)
[2022-11-03] MEDS: guaiFENesin 600 MG Tab.ER PO SCH ×2 (08:23→20:37)
[2022-11-03] MEDS: Loratadine 10 MG Tab PO SCH (08:23)
[2022-11-03] MEDS: Hydroxychloroquine 200 MG Tab PO SCH ×2 (08:23→20:38)
[2022-11-03] MEDS ORDERED: cefTRIAXone 1 GM Vial IM SCH (14:00)
[2022-11-03] MEDS ORDERED: cefTRIAXone 1 GM in Sodium Chloride 0.9% 50 ML IV SCH (14:00)
[2022-11-03] MEDS: Enoxaparin 40 MG/0.4 ML Syringe SUBCUT SCH (16:06)
[2022-11-03] MEDS: Melatonin 3 MG Tab PO SCH (20:37)
[2022-11-03] MEDS: Gabapentin 300 MG Cap PO SCH (20:37)
[2022-11-03] MEDS: methylPREDNISolone Sodium Succinate 125 MG/2 ML SDV IVPUSH SCH (21:02)
[2022-11-04] MEDS: Albuterol 0.083% 2.5 MG/3 ML Neb Soln NEB PRN ×2 (00:30→04:12)
[2022-11-04] MEDS: methylPREDNISolone Sodium Succinate 125 MG/2 ML SDV IVPUSH SCH (05:51)
[2022-11-04] MEDS: Albuterol/Ipratropium 3.0-0.5 MG/3 ML Neb Soln NEB SCH ×4 (07:03→20:00)
[2022-11-04] MEDS: Pantoprazole 40 MG Tab.CR PO SCH (07:17)
[2022-11-04] MEDS: Lactobacillus Rhamnosus GG (Probiotic) Cap PO SCH ×2 (08:10→20:03)
[2022-11-04] MEDS: Loratadine 10 MG Tab PO SCH (08:11)
[2022-11-04] MEDS: guaiFENesin 600 MG Tab.ER PO SCH ×2 (08:11→20:03)
[2022-11-04] MEDS: Losartan 25 MG Tab PO SCH (08:11)
[2022-11-04] MEDS: Hydroxychloroquine 200 MG Tab PO SCH ×2 (08:15→20:03)
[2022-11-04] MEDS ORDERED: Cholecalciferol (Vitamin D3) 25 MCG Tab PO SCH (09:00)
[2022-11-04] MEDS: Acetaminophen 325 MG Tab PO PRN (11:59)
[2022-11-04] MEDS: Enoxaparin 40 MG/0.4 ML Syringe SUBCUT SCH (16:03)
[2022-11-04] MEDS: Cefdinir 300 MG Cap PO SCH (17:17)
[2022-11-04] MEDS: Gabapentin 300 MG Cap PO SCH (20:03)
[2022-11-04] MEDS: Melatonin 3 MG Tab PO SCH (20:03)
[2022-11-05] MEDS: Albuterol 0.083% 2.5 MG/3 ML Neb Soln NEB PRN (01:03)
[2022-11-05] MEDS: Cefdinir 300 MG Cap PO SCH (05:19)
[2022-11-05] MEDS: Pantoprazole 40 MG Tab.CR PO SCH (07:19)
[2022-11-05] MEDS: Albuterol/Ipratropium 3.0-0.5 MG/3 ML Neb Soln NEB SCH ×2 (07:28→11:03)
[2022-11-05] MEDS: guaiFENesin 600 MG Tab.ER PO SCH (08:13)
[2022-11-05] MEDS: Losartan 25 MG Tab PO SCH (08:13)
[2022-11-05] MEDS: Lactobacillus Rhamnosus GG (Probiotic) Cap PO SCH (08:13)
[2022-11-05] MEDS: Loratadine 10 MG Tab PO SCH (08:13)
[2022-11-05] MEDS: Hydroxychloroquine 200 MG Tab PO SCH (08:13)
[2022-11-05] MEDS ORDERED: predniSONE 20 MG Tab PO SCH (09:00)
== END 2022-11-05 14:20 | disposition home or self-care (01) | DRG 871 ==
LOC: JP.ED 12:25 → JP.MS 15:54
PROVIDERS: ADMIT Internal Medicine; ATTEND Hospitalist
DX: A41.9 Sepsis, unspecified organism (principal); R09.02 Hypoxemia; R53.1 Weakness; Z20.822 Contact with and (suspected) exposure to COVID-19; J96.01 Acute respiratory failure with hypoxia; J44.1 Chronic obstructive pulmonary disease with (acute) exacerbation; J44.0 Chronic obstructive pulmonary disease with (acute) lower respiratory infection; D84.821 Immunodeficiency due to drugs; J20.9 Acute bronchitis, unspecified; D64.9 Anemia, unspecified; M32.9 Systemic lupus erythematosus, unspecified; Z99.81 Dependence on supplemental oxygen; E86.0 Dehydration; I10 Essential (primary) hypertension; F41.9 Anxiety disorder, unspecified; M06.9 Rheumatoid arthritis, unspecified; Z87.01 Personal history of pneumonia (recurrent); Z87.440 Personal history of urinary (tract) infections; Z90.49 Acquired absence of other specified parts of digestive tract; Z90.89 Acquired absence of other organs; Z98.49 Cataract extraction status, unspecified eye; Z98.51 Tubal ligation status; Z79.899 Other long term (current) drug therapy
CPT/HCPCS: 36415; 71045 ×2; 80048; 82803; 83605; 83880; 84145; 85025; 85379; 86140; 87040 ×2; 94640 ×2; 96365; 96375; 99285 ×2; J0696; J2930; J3490 ×2; J7030; U0002; 83735; 84100; 84443; 85027; 97110-GP; 97161-GP; 97165-GO; 97530-GP; 99222; 99232; 99238; A9270-GY; J1650; J2920; J7512; J7620

== ENCOUNTER 2023-01-08 17:49 | Inpatient (IN) | payer MEDICARE ==
[2023-01-08] MEDS ORDERED: Albuterol 0.083% 2.5 MG/3 ML Neb Soln NEB ONE (18:26)
[2023-01-08] MEDS ORDERED: methylPREDNISolone Sodium Succinate 125 MG/2 ML SDV IVPUSH ONE (18:26)
[2023-01-08] MEDS ORDERED: Sodium Chloride 0.9% 10 ML Syringe FLUSH PRN (18:27)
[2023-01-08] MEDS ORDERED: Magnesium Sulfate/Water 2 GM in Premix Bag 1 BAG IV ONE (18:27)
[2023-01-08 18:37] LABS: BASE EXCESS VENOUS 14.5 mm/L; BASOPHILS ABSOLUTE AUTO 0.06 K/uL (0.00-0.10); BASOPHILS PERCENT AUTO 0.7 % (0.1-1.3); BICARBONATE,VENOUS 44.4 mmol/L; CARBOXYHEMOGLOBIN 2.7 % (0.0-1.6); EOSINOPHILS ABSOLUTE AUTO 0.24 K/uL (0.00-0.40); EOSINOPHILS PERCENT AUTO 2.6 % (0.0-5.4); HEMATOCRIT 38.8 % (34.3-46.0); HEMOGLOBIN 11.5 g/dL (11.2-15.5); IMMATURE GRAN PERCENT AUTO 0.2 % (0.0-0.7); LYMPHOCYTES ABSOLUTE AUTO 1.09 K/uL (0.8-3.3); LYMPHOCYTES PERCENT AUTO 11.8 % (11.4-47.7); MEAN CORPUSCULAR HEMOGLOBIN 26.9 pg (31.6-35.5); MEAN CORPUSCULAR HGB CONC 29.6 g/dL (31.6-35.5); MEAN CORPUSCULAR VOLUME 90.9 fL (81.4-99.0); METHEMOGLOBIN 0.6 %; MONOCYTES ABSOLUTE AUTO 0.74 K/uL (0.20-0.90); NEUTROPHILS ABSOLUTE AUTO 7.06 K/uL (1.0-7.6); NEUTROPHILS PERCENT AUTO 76.7 % (40.0-78.1); O2 SATURATION VENOUS 63.2; OXYHEMOGLOBIN 61.1 %; PCO2 VENOUS 92.9 mm/Hg; PLATELET COUNT,PLT 154 K/uL (130-375); RED BLOOD CELL COUNT 4.27 M/uL (3.77-5.24); TOTAL HEMOGLOBIN 11.9 g/dL (12.0-16.0); WHITE BLOOD CELL COUNT,WBC 9.2 K/uL (3.2-11.0)
[2023-01-08 18:38] LABS: IMMATURE GRAN ABSOLUTE AUTO 0.02 K/uL (0.00-0.23)
[2023-01-08 18:39] LABS: PO2 VENOUS 37.4 mm/Hg
[2023-01-08] MEDS ORDERED: Sodium Chloride 0.9% 100 ML ONE (18:41)
[2023-01-08] MEDS: Doxycycline 100 MG in Sodium Chloride 0.9% 100 ML IV ONE ×2 (18:49)
[2023-01-08] MEDS: Doxycycline 100 MG Vial ONE (18:49)
[2023-01-08 18:55] LABS: BLOOD UREA NITROGEN,BUN 16 mg/dL (7-18); CALCIUM 9.1 mg/dL (8.5-10.1); CARBON DIOXIDE,CO2 44 mmol/L (21-32); CHLORIDE,CL 99 mmol/L (100-108); CREATININE 0.9 mg/dL (0.6-1.0); ESTIMATED GFR 71 mL/min (>60); GLUCOSE RANDOM 113 mg/dL (74-106); POTASSIUM,K 4.6 mmol/L (3.6-5.2); SODIUM,NA 142 mmol/L (140-148)
[2023-01-08 18:56] LABS: ANION GAP 3.6 mmol/L (5.0-14.0)
[2023-01-08 20:29] LABS: BASE EXCESS VENOUS 12.6 mm/L; BICARBONATE,VENOUS 43.5 mmol/L; CARBOXYHEMOGLOBIN 2.4 % (0.0-1.6); METHEMOGLOBIN 0.8 %; O2 SATURATION VENOUS 83.6; OXYHEMOGLOBIN 80.9 %; PCO2 VENOUS 101 mm/Hg; PH,VENOUS 7.258 (7.350-7.450); PO2 VENOUS 54.9 mm/Hg; TOTAL HEMOGLOBIN 12.4 g/dL (12.0-16.0)
[2023-01-09] MEDS ORDERED: Losartan 25 MG Tab PO SCH (00:49)
[2023-01-09] MEDS ORDERED: Enoxaparin 40 MG/0.4 ML Syringe SUBCUT SCH (00:49)
[2023-01-09] MEDS ORDERED: Melatonin 3 MG Tab PO PRN (00:49)
[2023-01-09] MEDS ORDERED: Magnesium Hydroxide 400 MG/5 ML Susp 30 ML Cup PO PRN (00:49)
[2023-01-09] MEDS ORDERED: guaiFENesin/Dextromethorphan 100-10 MG/5 ML Soln 10 ML Cup PO PRN (00:49)
[2023-01-09] MEDS ORDERED: Sennosides/Docusate Sodium 50-8.6 MG Tab PO PRN (00:49)
[2023-01-09] MEDS ORDERED: Acetaminophen 325 MG Tab PO PRN (00:49)
[2023-01-09] MEDS ORDERED: Benzonatate 100 MG Cap PO PRN (00:49)
[2023-01-09] MEDS ORDERED: Ondansetron 4 MG/2 ML SDV IV PRN (00:49)
[2023-01-09] MEDS ORDERED: Ondansetron 4 MG Tab.DIS PO PRN (00:49)
[2023-01-09] MEDS ORDERED: Albuterol/Ipratropium 3.0-0.5 MG/3 ML Neb Soln ONE (01:01)
[2023-01-09] MEDS: Albuterol/Ipratropium 3.0-0.5 MG/3 ML Neb Soln NEB SCH ×5 (01:10→20:50)
[2023-01-09] MEDS ORDERED: Losartan 50 MG Tab ONE (02:04)
[2023-01-09] MEDS ORDERED: Losartan 50 MG Tab PO ONE (02:15)
[2023-01-09] MEDS: Gabapentin 300 MG Cap PO SCH ×2 (02:15→20:55)
[2023-01-09] MEDS: methylPREDNISolone Sodium Succinate 125 MG/2 ML SDV IVPUSH SCH ×3 (02:22→19:43)
[2023-01-09 05:40] LABS: HEMATOCRIT 40.8 % (34.3-46.0); HEMOGLOBIN 12.3 g/dL (11.2-15.5); MEAN CORPUSCULAR HEMOGLOBIN 27.4 pg (31.6-35.5); MEAN CORPUSCULAR HGB CONC 30.1 g/dL (31.6-35.5); MEAN CORPUSCULAR VOLUME 90.9 fL (81.4-99.0); RED BLOOD CELL COUNT 4.49 M/uL (3.77-5.24); WHITE BLOOD CELL COUNT,WBC 8.1 K/uL (3.2-11.0)
[2023-01-09 05:50] LABS: BASE EXCESS ARTERIAL 12.9 mm/L; BICARBONATE,ARTERIAL 42.3 mmol/L (22.0-26.0); CARBOXYHEMOGLOBIN 4.3 % (0.0-1.6); METHEMOGLOBIN 0.7 %; OXYHEMOGLOBIN 94.7 %; TOTAL HEMOGLOBIN 12.5 g/dL (12.0-16.0)
[2023-01-09 05:57] LABS: O2 SATURATION ARTERIAL > 99.3 % (95.0-98.0); PCO2 ARTERIAL 84.9 mmHg (35.0-42.0)
[2023-01-09 06:03] LABS: BLOOD UREA NITROGEN,BUN 18 mg/dL (7-18); CHLORIDE,CL 97 mmol/L (100-108); CREATININE 0.9 mg/dL (0.6-1.0); EST CRCL DRUG DOSING (CG) 53.81 mL/min; ESTIMATED GFR 71 mL/min (>60); GLUCOSE RANDOM 150 mg/dL (74-106); MAGNESIUM 2.2 mg/dL (1.8-2.4); POTASSIUM,K 5.2 mmol/L (3.6-5.2); SODIUM,NA 141 mmol/L (140-148)
[2023-01-09 06:05] LABS: ANION GAP 4.2 mmol/L (5.0-14.0); CARBON DIOXIDE,CO2 > 45 mmol/L (21-32)
[2023-01-09] MEDS: Doxycycline 100 MG in Sodium Chloride 0.9% 100 ML IV SCH ×2 (06:23→19:43)
[2023-01-09] MEDS: Doxycycline 100 MG Vial ONE (06:37)
[2023-01-09] MEDS: Lactobacillus Rhamnosus GG (Probiotic) Cap PO SCH ×2 (09:41→20:53)
[2023-01-09] MEDS: Loratadine 10 MG Tab PO SCH (09:41)
[2023-01-09] MEDS: Hydroxychloroquine 200 MG Tab PO SCH ×2 (09:41→20:55)
[2023-01-09] MEDS: cefTRIAXone 1 GM in Sodium Chloride 0.9% 50 ML IV SCH (11:08)
[2023-01-09] MEDS ORDERED: Magnesium Sulfate/Water 2 GM in Premix Bag 1 BAG IV ONE (11:30)
[2023-01-09] MEDS: Enoxaparin 40 MG/0.4 ML Syringe SUBCUT SCH (20:53)
[2023-01-09] MEDS: Losartan 25 MG Tab PO SCH (20:53)
[2023-01-10] MEDS: Albuterol 0.083% 2.5 MG/3 ML Neb Soln NEB PRN (01:23)
[2023-01-10] MEDS: methylPREDNISolone Sodium Succinate 125 MG/2 ML SDV IVPUSH SCH ×3 (03:43→19:26)
[2023-01-10 05:21] LABS: BASE EXCESS ARTERIAL 14.6 mm/L; BICARBONATE,ARTERIAL 42.8 mmol/L (22.0-26.0); CARBOXYHEMOGLOBIN 2.6 % (0.0-1.6); METHEMOGLOBIN 0.8 %; O2 SATURATION ARTERIAL 92.8 % (95.0-98.0); OXYHEMOGLOBIN 89.6 %; PO2 ARTERIAL 63.8 mmHg (75.0-100.0); TOTAL HEMOGLOBIN 11.2 g/dL (12.0-16.0)
[2023-01-10 05:22] LABS: HEMATOCRIT 37.4 % (34.3-46.0); HEMOGLOBIN 10.8 g/dL (11.2-15.5); MEAN CORPUSCULAR HEMOGLOBIN 26.8 pg (31.6-35.5); MEAN CORPUSCULAR HGB CONC 28.9 g/dL (31.6-35.5); MEAN CORPUSCULAR VOLUME 92.8 fL (81.4-99.0); RED BLOOD CELL COUNT 4.03 M/uL (3.77-5.24); WHITE BLOOD CELL COUNT,WBC 12.9 K/uL (3.2-11.0)
[2023-01-10 05:24] LABS: PCO2 ARTERIAL 77.6 mmHg (35.0-42.0)
[2023-01-10 05:33] LABS: CALCIUM 8.6 mg/dL (8.5-10.1); CREATININE 0.9 mg/dL (0.6-1.0); EST CRCL DRUG DOSING (CG) 53.81 mL/min; POTASSIUM,K 5.6 mmol/L (3.6-5.2)
[2023-01-10 05:43] LABS: ANION GAP 3.6 mmol/L (5.0-14.0)
[2023-01-10] MEDS: Albuterol/Ipratropium 3.0-0.5 MG/3 ML Neb Soln NEB SCH ×4 (06:58→20:52)
[2023-01-10] MEDS: Doxycycline 100 MG in Sodium Chloride 0.9% 100 ML IV SCH ×2 (07:26→19:26)
[2023-01-10] MEDS: Lactobacillus Rhamnosus GG (Probiotic) Cap PO SCH ×2 (08:53→20:54)
[2023-01-10] MEDS: Hydroxychloroquine 200 MG Tab PO SCH ×2 (08:53→20:54)
[2023-01-10] MEDS: Loratadine 10 MG Tab PO SCH (08:53)
[2023-01-10] MEDS: cefTRIAXone 1 GM in Sodium Chloride 0.9% 50 ML IV SCH (10:36)
[2023-01-10] MEDS ORDERED: Sodium Chloride 0.9% 500 ML IV ONE (17:42)
[2023-01-10] MEDS: Enoxaparin 40 MG/0.4 ML Syringe SUBCUT SCH (20:54)
[2023-01-10] MEDS: Losartan 25 MG Tab PO SCH (20:54)
[2023-01-10] MEDS: Gabapentin 300 MG Cap PO SCH (20:54)
[2023-01-11] MEDS: Albuterol 0.083% 2.5 MG/3 ML Neb Soln NEB PRN (02:59)
[2023-01-11] MEDS: methylPREDNISolone Sodium Succinate 125 MG/2 ML SDV IVPUSH SCH (03:02)
[2023-01-11 05:13] LABS: HEMATOCRIT 41.3 % (34.3-46.0); HEMOGLOBIN 11.9 g/dL (11.2-15.5); MEAN CORPUSCULAR HEMOGLOBIN 26.9 pg (31.6-35.5); MEAN CORPUSCULAR HGB CONC 28.8 g/dL (31.6-35.5); MEAN CORPUSCULAR VOLUME 93.4 fL (81.4-99.0); RED BLOOD CELL COUNT 4.42 M/uL (3.77-5.24)
[2023-01-11 05:26] LABS: CALCIUM 8.7 mg/dL (8.5-10.1); CREATININE 1.1 mg/dL (0.6-1.0); EST CRCL DRUG DOSING (CG) 44.03 mL/min; POTASSIUM,K 4.6 mmol/L (3.6-5.2)
[2023-01-11 05:27] LABS: ANION GAP 6.6 mmol/L (5.0-14.0)
[2023-01-11] MEDS: Albuterol/Ipratropium 3.0-0.5 MG/3 ML Neb Soln NEB SCH ×4 (07:11→20:47)
[2023-01-11] MEDS: Doxycycline 100 MG in Sodium Chloride 0.9% 100 ML IV SCH (07:41)
[2023-01-11] MEDS: Hydroxychloroquine 200 MG Tab PO SCH ×2 (08:51→20:48)
[2023-01-11] MEDS: Lactobacillus Rhamnosus GG (Probiotic) Cap PO SCH ×2 (08:51→20:47)
[2023-01-11] MEDS: Loratadine 10 MG Tab PO SCH (08:51)
[2023-01-11] MEDS ORDERED: predniSONE 20 MG Tab PO ONE (10:04)
[2023-01-11] MEDS: cefTRIAXone 1 GM in Sodium Chloride 0.9% 50 ML IV SCH (10:45)
[2023-01-11] MEDS: Gabapentin 300 MG Cap PO SCH (20:47)
[2023-01-11] MEDS: Losartan 25 MG Tab PO SCH (20:48)
[2023-01-11] MEDS: Enoxaparin 40 MG/0.4 ML Syringe SUBCUT SCH (20:48)
[2023-01-11] MEDS: Doxycycline 100 MG Cap PO SCH (20:50)
[2023-01-12] MEDS: Albuterol 0.083% 2.5 MG/3 ML Neb Soln NEB PRN ×2 (04:53→18:34)
[2023-01-12] MEDS: Albuterol/Ipratropium 3.0-0.5 MG/3 ML Neb Soln NEB SCH ×4 (07:02→20:22)
[2023-01-12] MEDS ORDERED: predniSONE 20 MG Tab PO SCH (08:00)
[2023-01-12] MEDS: Loratadine 10 MG Tab PO SCH (09:47)
[2023-01-12] MEDS: Lactobacillus Rhamnosus GG (Probiotic) Cap PO SCH ×2 (09:48→20:22)
[2023-01-12] MEDS: Doxycycline 100 MG Cap PO SCH ×2 (09:48→20:23)
[2023-01-12] MEDS: Hydroxychloroquine 200 MG Tab PO SCH ×2 (09:48→20:23)
[2023-01-12] MEDS: cefTRIAXone 1 GM in Sodium Chloride 0.9% 50 ML IV SCH (12:28)
[2023-01-12] MEDS: Gabapentin 300 MG Cap PO SCH (20:23)
[2023-01-12] MEDS: Losartan 25 MG Tab PO SCH (20:23)
[2023-01-12] MEDS: Enoxaparin 40 MG/0.4 ML Syringe SUBCUT SCH (20:23)
[2023-01-13] MEDS: Albuterol 0.083% 2.5 MG/3 ML Neb Soln NEB PRN ×2 (05:26→19:05)
[2023-01-13] MEDS: Albuterol/Ipratropium 3.0-0.5 MG/3 ML Neb Soln NEB SCH ×4 (06:59→21:29)
[2023-01-13] MEDS: predniSONE 20 MG Tab PO SCH (08:13)
[2023-01-13] MEDS: Hydroxychloroquine 200 MG Tab PO SCH ×2 (08:13→21:29)
[2023-01-13] MEDS: Lactobacillus Rhamnosus GG (Probiotic) Cap PO SCH ×2 (08:13→21:29)
[2023-01-13] MEDS: Loratadine 10 MG Tab PO SCH (08:13)
[2023-01-13] MEDS: Doxycycline 100 MG Cap PO SCH ×2 (08:13→21:29)
[2023-01-13] MEDS: cefTRIAXone 1 GM in Sodium Chloride 0.9% 50 ML IV SCH (10:09)
[2023-01-13] MEDS: Enoxaparin 40 MG/0.4 ML Syringe SUBCUT SCH (21:29)
[2023-01-13] MEDS: Gabapentin 300 MG Cap PO SCH (21:29)
[2023-01-13] MEDS: Cefdinir 300 MG Cap PO SCH (21:30)
[2023-01-13] MEDS: Losartan 25 MG Tab PO SCH (21:30)
[2023-01-14] MEDS: Albuterol 0.083% 2.5 MG/3 ML Neb Soln NEB PRN (04:19)
[2023-01-14] MEDS: Albuterol/Ipratropium 3.0-0.5 MG/3 ML Neb Soln NEB SCH ×2 (07:01→10:45)
[2023-01-14] MEDS: Hydroxychloroquine 200 MG Tab PO SCH (08:04)
[2023-01-14] MEDS: Lactobacillus Rhamnosus GG (Probiotic) Cap PO SCH (08:04)
[2023-01-14] MEDS: Loratadine 10 MG Tab PO SCH (08:04)
[2023-01-14] MEDS: Doxycycline 100 MG Cap PO SCH (08:04)
[2023-01-14] MEDS: predniSONE 20 MG Tab PO SCH (08:05)
[2023-01-14] MEDS: Cefdinir 300 MG Cap PO SCH (09:54)
== END 2023-01-14 12:15 | disposition home or self-care (01) | DRG 190 ==
LOC: JP.ED 17:49 → JP.ICU 22:27 → JP.MS 01-11 12:21
PROVIDERS: ADMIT Internal Medicine; ATTEND Internal Medicine
PROC: 5A09357 Assistance with Respiratory Ventilation, Less than 24 Consecutive Hours, Continuous Positive Airway Pressure (ICD-10-PCS; principal; 2023-01-08)
PROC: 4A033R1 Measurement of Arterial Saturation, Peripheral, Percutaneous Approach (ICD-10-PCS; 2023-01-08)
DX: J44.1 Chronic obstructive pulmonary disease with (acute) exacerbation (principal); J96.21 Acute and chronic respiratory failure with hypoxia; J96.22 Acute and chronic respiratory failure with hypercapnia; D84.821 Immunodeficiency due to drugs; J44.0 Chronic obstructive pulmonary disease with (acute) lower respiratory infection; J20.9 Acute bronchitis, unspecified; M32.9 Systemic lupus erythematosus, unspecified; D84.9 Immunodeficiency, unspecified; M19.90 Unspecified osteoarthritis, unspecified site; F41.9 Anxiety disorder, unspecified; Z20.822 Contact with and (suspected) exposure to COVID-19; I10 Essential (primary) hypertension; M06.9 Rheumatoid arthritis, unspecified; Z91.048 Other nonmedicinal substance allergy status; Z88.1 Allergy status to other antibiotic agents; Z88.8 Allergy status to other drugs, medicaments and biological substances; Z99.81 Dependence on supplemental oxygen; Z87.440 Personal history of urinary (tract) infections; Z90.49 Acquired absence of other specified parts of digestive tract; Z98.890 Other specified postprocedural states; Z79.899 Other long term (current) drug therapy; Z87.891 Personal history of nicotine dependence
CPT/HCPCS: 36415; 71045 ×2; 80048; 82803 ×2; 84145; 85025; 94640; 94660; 96365; 96367; 96375; 99285 ×2; J2930; J3475; J3490 ×4; U0002; 36600; 83735; 85027; 97110-GP; 97161-GP; 97530-GP; 99222; 99232; 99238; A9270-GY; J0696; J1650; J7040; J7512; J7620

== ENCOUNTER 2023-05-05 18:15 | Inpatient (IN) | payer MEDICARE ==
[2023-05-05] MEDS ORDERED: Albuterol/Ipratropium 3.0-0.5 MG/3 ML Neb Soln NEB ONE (19:13)
[2023-05-05 19:36] LABS: BASE EXCESS ARTERIAL 11.2 mm/L; BICARBONATE,ARTERIAL 38.6 mmol/L (22.0-26.0); CARBOXYHEMOGLOBIN 3.6 % (0.0-1.6); METHEMOGLOBIN 0.9 %; O2 SATURATION ARTERIAL 98.7 % (95.0-98.0); OXYHEMOGLOBIN 94.3 %; PCO2 ARTERIAL 67.9 mmHg (35.0-42.0); TOTAL HEMOGLOBIN 11.9 g/dL (12.0-16.0)
[2023-05-05 19:44] LABS: BASOPHILS ABSOLUTE AUTO 0.03 K/uL (0.00-0.10); BASOPHILS PERCENT AUTO 0.5 % (0.1-1.3); EOSINOPHILS ABSOLUTE AUTO 0.14 K/uL (0.00-0.40); EOSINOPHILS PERCENT AUTO 2.3 % (0.0-5.4); HEMATOCRIT 37.3 % (34.3-46.0); HEMOGLOBIN 11.4 g/dL (11.2-15.5); IMMATURE GRAN PERCENT AUTO 0.3 % (0.0-0.7); LYMPHOCYTES ABSOLUTE AUTO 0.97 K/uL (0.8-3.3); LYMPHOCYTES PERCENT AUTO 15.7 % (11.4-47.7); MEAN CORPUSCULAR HEMOGLOBIN 27.2 pg (31.6-35.5); MEAN CORPUSCULAR HGB CONC 30.6 g/dL (31.6-35.5); MONOCYTES PERCENT AUTO 16.2 % (3.3-12.6); NEUTROPHILS ABSOLUTE AUTO 4.02 K/uL (1.0-7.6); RED BLOOD CELL COUNT 4.19 M/uL (3.77-5.24); WHITE BLOOD CELL COUNT,WBC 6.2 K/uL (3.2-11.0)
[2023-05-05 19:51] LABS: C-REACTIVE PROTEIN 4.26 mg/dL (<0.50); CALCIUM 8.3 mg/dL (8.5-10.1); CREATININE 0.9 mg/dL (0.6-1.0); EST CRCL DRUG DOSING (CG) 50.86 mL/min; POTASSIUM,K 4.3 mmol/L (3.6-5.2)
[2023-05-05 20:06] LABS: IMMATURE GRAN ABSOLUTE AUTO 0.02 K/uL (0.00-0.23)
[2023-05-05 20:10] LABS: ANION GAP 5.3 mmol/L (5.0-14.0); PLATELET COUNT,PLT 134 K/uL (130-375)
[2023-05-05] MEDS ORDERED: Dexamethasone 4 MG/ML SDV IVPUSH ONE ×2 (20:22→22:45)
[2023-05-05] MEDS ORDERED: cefTRIAXone 1 GM in Sodium Chloride 0.9% 50 ML IV ONE (21:19)
[2023-05-05 21:23] LABS: INFLUENZA A NAA NEGATIVE (NEGATIVE); INFLUENZA B NAA NEGATIVE (NEGATIVE); RESPIRATORY SYNCYTIAL VIR NAA NEGATIVE (NEGATIVE)
[2023-05-05 21:27] LABS: CORONAVIRUS COVID-19 NAA POSITIVE (NEGATIVE)
[2023-05-05 22:17] LABS: AMORPHOUS SEDIMENT,URINE NOT SEEN; APPEARANCE,URINE SLIGHTLY CLOUDY (CLEAR); BACTERIA,URINE FEW; BILIRUBIN,URINE NEGATIVE (NEGATIVE); COLOR,URINE YELLOW (YELLOW); EPITHELIAL CELLS,URINE FEW; GLUCOSE,URINE NEGATIVE (NEGATIVE); KETONES,URINE NEGATIVE (NEGATIVE); LEUKOCYTE ESTERASE,URINE SMALL (NEGATIVE); MUCUS,URINE FEW; NITRITE,URINE NEGATIVE (NEGATIVE); OCCULT BLOOD,URINE NEGATIVE (NEGATIVE); PROTEIN,URINE TRACE mg/dL (NEGATIVE); RBC,URINE 0-5 (0-5)
[2023-05-05] MEDS ORDERED: Albuterol/Ipratropium 3.0-0.5 MG/3 ML Neb Soln INH PRN (22:19)
[2023-05-05] MEDS ORDERED: Albuterol 6.7 GM Inhaler INH PRN (22:19)
[2023-05-05] MEDS ORDERED: Docusate Sodium 100 MG Cap PO PRN (22:45)
[2023-05-05] MEDS ORDERED: Sodium Chloride 0.9% 10 ML Syringe FLUSH PRN (22:45)
[2023-05-05] MEDS ORDERED: Enoxaparin 40 MG/0.4 ML Syringe SUBCUT SCH (22:45)
[2023-05-05] MEDS ORDERED: Morphine 2 MG/ML SYRINGE IVPUSH PRN (22:45)
[2023-05-05] MEDS ORDERED: Ondansetron 4 MG Tab.DIS PO PRN (22:45)
[2023-05-05] MEDS ORDERED: oxyCODONE 5 MG Tab PO PRN (22:45)
[2023-05-05] MEDS ORDERED: Naloxone 0.4 MG/ML SDV IVPUSH PRN (22:45)
[2023-05-05] MEDS ORDERED: REMDESIVIR 200 MG in Sodium Chloride 0.9% 250 ML IV ONE (22:45)
[2023-05-05 23:09] LABS: PROTHROMBIN TIME 9.8 sec (9.2-10.6)
[2023-05-05 23:16] LABS: C-REACTIVE PROTEIN 4.14 mg/dL (<0.50)
[2023-05-05] MEDS ORDERED: Losartan 50 MG Tab ONE (23:18)
[2023-05-05] MEDS: Losartan 25 MG Tab PO SCH (23:26)
[2023-05-05] MEDS: Gabapentin 300 MG Cap PO SCH (23:27)
[2023-05-05] MEDS: Hydroxychloroquine 200 MG Tab PO SCH (23:31)
[2023-05-06] MEDS: Albuterol/Ipratropium 3.0-0.5 MG/3 ML Neb Soln NEB PRN ×2 (01:15→08:10)
[2023-05-06 05:50] LABS: BASE EXCESS ARTERIAL 9.8 mm/L; BICARBONATE,ARTERIAL 40.1 mmol/L (22.0-26.0); CARBOXYHEMOGLOBIN 1.9 % (0.0-1.6); METHEMOGLOBIN 0.9 %; O2 SATURATION ARTERIAL 95.2 % (95.0-98.0); OXYHEMOGLOBIN 92.5 %; PO2 ARTERIAL 79.2 mmHg (75.0-100.0); TOTAL HEMOGLOBIN 11.9 g/dL (12.0-16.0)
[2023-05-06] MEDS: Hydroxychloroquine 200 MG Tab PO SCH ×2 (08:07→21:34)
[2023-05-06] MEDS: Cholecalciferol (Vitamin D3) 25 MCG Tab PO SCH (08:07)
[2023-05-06] MEDS: Loratadine 10 MG Tab PO SCH (08:07)
[2023-05-06] MEDS: Dexamethasone 4 MG/ML SDV IVPUSH SCH (08:14)
[2023-05-06] MEDS ORDERED: REMDESIVIR 100 MG in Sodium Chloride 0.9% 100 ML IV SCH (09:00)
[2023-05-06] MEDS ORDERED: Non-Formulary Medication 1 Each (Cholecalciferol (Vitamin D3) [Vitamin D3] 5,000 UNIT Caps PO SCH (09:10)
[2023-05-06 10:25] LABS: BICARBONATE,ARTERIAL 39.1 mmol/L (22.0-26.0); CARBOXYHEMOGLOBIN 2.4 % (0.0-1.6); METHEMOGLOBIN 0.9 %; O2 SATURATION ARTERIAL 98.3 % (95.0-98.0); OXYHEMOGLOBIN 95.1 %; TOTAL HEMOGLOBIN 12.7 g/dL (12.0-16.0)
[2023-05-06] MEDS ORDERED: Pantoprazole 40 MG Vial IV SCH (21:00)
[2023-05-06] MEDS: REMDESIVIR 100 MG in Sodium Chloride 0.9% 100 ML IV SCH (21:33)
[2023-05-06] MEDS: Gabapentin 300 MG Cap PO SCH (21:34)
[2023-05-06] MEDS: Losartan 25 MG Tab PO SCH (21:34)
[2023-05-06] MEDS: Enoxaparin 40 MG/0.4 ML Syringe SUBCUT SCH (21:34)
[2023-05-07 05:34] LABS: HEMATOCRIT 38.9 % (34.3-46.0); HEMOGLOBIN 11.8 g/dL (11.2-15.5); MEAN CORPUSCULAR HEMOGLOBIN 27.1 pg (31.6-35.5); MEAN CORPUSCULAR HGB CONC 30.3 g/dL (31.6-35.5); MEAN CORPUSCULAR VOLUME 89.4 fL (81.4-99.0); RED BLOOD CELL COUNT 4.35 M/uL (3.77-5.24); WHITE BLOOD CELL COUNT,WBC 8.3 K/uL (3.2-11.0)
[2023-05-07 05:35] LABS: CARBOXYHEMOGLOBIN 3.1 % (0.0-1.6); METHEMOGLOBIN 0.9 %; O2 SATURATION ARTERIAL 96.2 % (95.0-98.0); OXYHEMOGLOBIN 92.4 %; PO2 ARTERIAL 77.7 mmHg (75.0-100.0); TOTAL HEMOGLOBIN 12.3 g/dL (12.0-16.0)
[2023-05-07 05:45] LABS: PCO2 ARTERIAL 71.8 mmHg (35.0-42.0)
[2023-05-07 06:01] LABS: CALCIUM 8.4 mg/dL (8.5-10.1); CREATININE 0.9 mg/dL (0.6-1.0); EST CRCL DRUG DOSING (CG) 50.86 mL/min
[2023-05-07 06:07] LABS: A/G RATIO 0.9 (1.2-2.2); ALANINE AMINOTRANSFERASE,ALT 23 U/L (12-78); ALBUMIN 2.8 g/dL (3.4-5.0); ALKALINE PHOSPHATASE 51 U/L (46-116); ASPARTATE AMNIOTRANSFERASE,AST 13 U/L (15-37); BILIRUBIN TOTAL 0.1 mg/dL (0.2-1.0)
[2023-05-07 06:10] LABS: BILIRUBIN DIRECT < 0.05 mg/dL (0.0-0.2)
[2023-05-07] MEDS: Dexamethasone 4 MG/ML SDV IVPUSH SCH (08:12)
[2023-05-07] MEDS: Hydroxychloroquine 200 MG Tab PO SCH ×2 (08:12→20:55)
[2023-05-07] MEDS: Loratadine 10 MG Tab PO SCH (08:12)
[2023-05-07] MEDS: Acetaminophen 325 MG Tab PO PRN ×2 (08:15→19:41)
[2023-05-07] MEDS: Losartan 25 MG Tab PO SCH (20:55)
[2023-05-07] MEDS: Gabapentin 300 MG Cap PO SCH (20:55)
[2023-05-07] MEDS: Enoxaparin 40 MG/0.4 ML Syringe SUBCUT SCH (20:55)
[2023-05-07] MEDS: Pantoprazole 40 MG Tab.CR PO SCH (20:56)
[2023-05-07] MEDS: REMDESIVIR 100 MG in Sodium Chloride 0.9% 100 ML IV SCH (21:40)
[2023-05-08] MEDS: Acetaminophen 325 MG Tab PO PRN ×2 (05:20→21:23)
[2023-05-08 05:49] LABS: A/G RATIO 0.9 (1.2-2.2); ALANINE AMINOTRANSFERASE,ALT 24 U/L (12-78); ALBUMIN 2.8 g/dL (3.4-5.0); ALKALINE PHOSPHATASE 50 U/L (46-116); ASPARTATE AMNIOTRANSFERASE,AST 13 U/L (15-37); BILIRUBIN TOTAL 0.2 mg/dL (0.2-1.0); BLOOD UREA NITROGEN,BUN 19 mg/dL (7-18); CALCIUM 8.5 mg/dL (8.5-10.1); CARBON DIOXIDE,CO2 42 mmol/L (21-32); CHLORIDE,CL 102 mmol/L (100-108); CREATININE 0.9 mg/dL (0.6-1.0); EST CRCL DRUG DOSING (CG) 50.86 mL/min; ESTIMATED GFR 71 mL/min (>60); GLUCOSE RANDOM 90 mg/dL (74-106); POTASSIUM,K 4.1 mmol/L (3.6-5.2); PROTEIN TOTAL,TP 5.9 g/dL (6.4-8.2); SODIUM,NA 144 mmol/L (140-148)
[2023-05-08 05:59] LABS: ANION GAP 4.1 mmol/L (5.0-14.0)
[2023-05-08] MEDS: Loratadine 10 MG Tab PO SCH (08:45)
[2023-05-08] MEDS: Dexamethasone 4 MG/ML SDV IVPUSH SCH (08:45)
[2023-05-08] MEDS: Hydroxychloroquine 200 MG Tab PO SCH ×2 (08:45→21:22)
[2023-05-08] MEDS: Cholecalciferol (Vitamin D3) 25 MCG Tab PO SCH (08:45)
[2023-05-08] MEDS: Tiotropium Bromide 4 GM Inhalation Spray (2.5mcg/1 dose; 10 doses) INH SCH (11:43)
[2023-05-08] MEDS: Enoxaparin 40 MG/0.4 ML Syringe SUBCUT SCH (21:21)
[2023-05-08] MEDS: Gabapentin 300 MG Cap PO SCH (21:22)
[2023-05-08] MEDS: Pantoprazole 40 MG Tab.CR PO SCH (21:23)
[2023-05-08] MEDS: Losartan 25 MG Tab PO SCH (21:23)
[2023-05-08] MEDS: REMDESIVIR 100 MG in Sodium Chloride 0.9% 100 ML IV SCH (21:24)
[2023-05-09] MEDS: Albuterol 6.7 GM Inhaler INH PRN (01:20)
[2023-05-09 05:51] LABS: HEMATOCRIT 39.3 % (34.3-46.0); HEMOGLOBIN 12.2 g/dL (11.2-15.5); MEAN CORPUSCULAR HEMOGLOBIN 27.2 pg (31.6-35.5); MEAN CORPUSCULAR VOLUME 87.7 fL (81.4-99.0); RED BLOOD CELL COUNT 4.48 M/uL (3.77-5.24); WHITE BLOOD CELL COUNT,WBC 7.4 K/uL (3.2-11.0)
[2023-05-09 06:10] LABS: A/G RATIO 0.9 (1.2-2.2); ALANINE AMINOTRANSFERASE,ALT 41 U/L (12-78); ALBUMIN 2.7 g/dL (3.4-5.0); ALKALINE PHOSPHATASE 48 U/L (46-116); ASPARTATE AMNIOTRANSFERASE,AST 24 U/L (15-37); BILIRUBIN TOTAL 0.2 mg/dL (0.2-1.0); BLOOD UREA NITROGEN,BUN 19 mg/dL (7-18); CALCIUM 8.4 mg/dL (8.5-10.1); CARBON DIOXIDE,CO2 40 mmol/L (21-32); CHLORIDE,CL 100 mmol/L (100-108); CREATININE 0.8 mg/dL (0.6-1.0); EST CRCL DRUG DOSING (CG) 57.22 mL/min; ESTIMATED GFR 81 mL/min (>60); GLUCOSE RANDOM 90 mg/dL (74-106); PROTEIN TOTAL,TP 5.7 g/dL (6.4-8.2); SODIUM,NA 142 mmol/L (140-148)
[2023-05-09] MEDS: Tiotropium Bromide 4 GM Inhalation Spray (2.5mcg/1 dose; 10 doses) INH SCH (08:10)
[2023-05-09] MEDS: Hydroxychloroquine 200 MG Tab PO SCH ×2 (08:13→22:02)
[2023-05-09] MEDS: Dexamethasone 4 MG/ML SDV IVPUSH SCH (08:13)
[2023-05-09] MEDS: Loratadine 10 MG Tab PO SCH (08:13)
[2023-05-09] MEDS: Enoxaparin 40 MG/0.4 ML Syringe SUBCUT SCH (22:01)
[2023-05-09] MEDS: Pantoprazole 40 MG Tab.CR PO SCH (22:02)
[2023-05-09] MEDS: REMDESIVIR 100 MG in Sodium Chloride 0.9% 100 ML IV SCH (22:02)
[2023-05-09] MEDS: Gabapentin 300 MG Cap PO SCH (22:02)
[2023-05-09] MEDS: Losartan 25 MG Tab PO SCH (22:03)
[2023-05-10 05:49] LABS: HEMATOCRIT 38.5 % (34.3-46.0); HEMOGLOBIN 11.8 g/dL (11.2-15.5); MEAN CORPUSCULAR HEMOGLOBIN 26.9 pg (31.6-35.5); MEAN CORPUSCULAR HGB CONC 30.6 g/dL (31.6-35.5); MEAN CORPUSCULAR VOLUME 87.9 fL (81.4-99.0); RED BLOOD CELL COUNT 4.38 M/uL (3.77-5.24); WHITE BLOOD CELL COUNT,WBC 7.9 K/uL (3.2-11.0)
[2023-05-10 06:06] LABS: ALANINE AMINOTRANSFERASE,ALT 44 U/L (12-78); ALBUMIN 2.7 g/dL (3.4-5.0); ALKALINE PHOSPHATASE 45 U/L (46-116); BILIRUBIN TOTAL 0.2 mg/dL (0.2-1.0); BLOOD UREA NITROGEN,BUN 25 mg/dL (7-18); CALCIUM 8.4 mg/dL (8.5-10.1); CARBON DIOXIDE,CO2 43 mmol/L (21-32); CHLORIDE,CL 102 mmol/L (100-108); EST CRCL DRUG DOSING (CG) 45.78 mL/min; ESTIMATED GFR 62 mL/min (>60); GLUCOSE RANDOM 88 mg/dL (74-106); POTASSIUM,K 3.9 mmol/L (3.6-5.2); PROTEIN TOTAL,TP 5.5 g/dL (6.4-8.2); SODIUM,NA 145 mmol/L (140-148)
[2023-05-10 06:19] LABS: ANION GAP 3.9 mmol/L (5.0-14.0)
[2023-05-10 06:20] LABS: ASPARTATE AMNIOTRANSFERASE,AST 23 U/L (15-37)
[2023-05-10] MEDS: Tiotropium Bromide 4 GM Inhalation Spray (2.5mcg/1 dose; 10 doses) INH SCH (08:02)
[2023-05-10] MEDS: Hydroxychloroquine 200 MG Tab PO SCH ×2 (09:03→20:55)
[2023-05-10] MEDS: Loratadine 10 MG Tab PO SCH (09:04)
[2023-05-10] MEDS: Dexamethasone 4 MG/ML SDV IVPUSH SCH (09:04)
[2023-05-10] MEDS: Albuterol 6.7 GM Inhaler INH PRN (09:13)
[2023-05-10] MEDS: Losartan 25 MG Tab PO SCH (20:54)
[2023-05-10] MEDS: Acetaminophen 325 MG Tab PO PRN (20:55)
[2023-05-10] MEDS: Pantoprazole 40 MG Tab.CR PO SCH (20:55)
[2023-05-10] MEDS: Gabapentin 300 MG Cap PO SCH (20:55)
[2023-05-10] MEDS: Enoxaparin 40 MG/0.4 ML Syringe SUBCUT SCH (20:56)
[2023-05-11] MEDS: Tiotropium Bromide 4 GM Inhalation Spray (2.5mcg/1 dose; 10 doses) INH SCH (08:03)
[2023-05-11] MEDS: Cholecalciferol (Vitamin D3) 25 MCG Tab PO SCH (08:25)
[2023-05-11] MEDS: Hydroxychloroquine 200 MG Tab PO SCH ×2 (08:26→21:25)
[2023-05-11] MEDS: Dexamethasone 4 MG/ML SDV IVPUSH SCH (08:27)
[2023-05-11] MEDS: Loratadine 10 MG Tab PO SCH (09:25)
[2023-05-11] MEDS: Enoxaparin 40 MG/0.4 ML Syringe SUBCUT SCH (21:24)
[2023-05-11] MEDS: Losartan 25 MG Tab PO SCH (21:24)
[2023-05-11] MEDS: Pantoprazole 40 MG Tab.CR PO SCH (21:25)
[2023-05-11] MEDS: Gabapentin 300 MG Cap PO SCH (21:25)
[2023-05-12] MEDS: Tiotropium Bromide 4 GM Inhalation Spray (2.5mcg/1 dose; 10 doses) INH SCH (08:01)
[2023-05-12] MEDS ORDERED: Dexamethasone 2 MG Tab PO SCH (09:00)
[2023-05-12] MEDS: Loratadine 10 MG Tab PO SCH (09:18)
[2023-05-12] MEDS: Hydroxychloroquine 200 MG Tab PO SCH (09:18)
== END 2023-05-12 11:55 | disposition home or self-care (01) | DRG 177 ==
LOC: JP.ED 18:15 → JP.ICU 20:58 → UNDODISIN 05-10 21:13
PROVIDERS: ADMIT Hospitalist; ATTEND Internal Medicine
PROC: XW033E5 Introduction of Remdesivir Anti-infective into Peripheral Vein, Percutaneous Approach, New Technology Group 5 (ICD-10-PCS; principal; 2023-05-05)
PROC: 3E0333Z Introduction of Anti-inflammatory into Peripheral Vein, Percutaneous Approach (ICD-10-PCS; 2023-05-05)
PROC: 4A133R1 Monitoring of Arterial Saturation, Peripheral, Percutaneous Approach (ICD-10-PCS; 2023-05-05)
DX: U07.1 COVID-19 (principal); J12.82 Pneumonia due to coronavirus disease 2019; R06.89 Other abnormalities of breathing; J96.21 Acute and chronic respiratory failure with hypoxia; Z88.1 Allergy status to other antibiotic agents; J96.22 Acute and chronic respiratory failure with hypercapnia; D84.821 Immunodeficiency due to drugs; J44.1 Chronic obstructive pulmonary disease with (acute) exacerbation; J44.9 Chronic obstructive pulmonary disease, unspecified; I10 Essential (primary) hypertension; M19.90 Unspecified osteoarthritis, unspecified site; F41.9 Anxiety disorder, unspecified; M06.9 Rheumatoid arthritis, unspecified; T50.995A Adverse effect of other drugs, medicaments and biological substances, initial encounter; Z99.81 Dependence on supplemental oxygen; Z79.899 Other long term (current) drug therapy; Z79.51 Long term (current) use of inhaled steroids; Z88.8 Allergy status to other drugs, medicaments and biological substances; Z91.041 Radiographic dye allergy status; Z98.49 Cataract extraction status, unspecified eye; Z87.891 Personal history of nicotine dependence
CPT/HCPCS: 0241U; 36415; 36600; 71046; 80048; 80053; 80076; 81001; 82150; 82550; 82728; 82803; 83605; 83615; 83690; 84145; 85025; 85027; 85379; 85610; 86140; 87040; 87086; 94640; 96374; 99284; 99285; A9270-GY; C9113; J1100; J1650; J3490; J7050; J7620; J8540

== ENCOUNTER 2023-09-01 16:08 | Emergency (ER) | payer MEDICARE ==
[2023-09-01] MEDS: Albuterol/Ipratropium 3.0-0.5 MG/3 ML Neb Soln NEB ONE (17:33)
[2023-09-01 17:41] LABS: BASE EXCESS VENOUS 15.3 mm/L; BICARBONATE,VENOUS 45.3 mmol/L; CARBOXYHEMOGLOBIN 2.8 % (0.0-1.6); METHEMOGLOBIN 1.2 %; O2 SATURATION VENOUS 61.8; OXYHEMOGLOBIN 59.3 %; PCO2 VENOUS 89.2 mm/Hg; PH,VENOUS 7.326 (7.350-7.450)
[2023-09-01 17:43] LABS: BASOPHILS ABSOLUTE AUTO 0.05 K/uL (0.00-0.10); BASOPHILS PERCENT AUTO 0.7 % (0.1-1.3); EOSINOPHILS ABSOLUTE AUTO 0.12 K/uL (0.00-0.40); EOSINOPHILS PERCENT AUTO 1.6 % (0.0-5.4); HEMATOCRIT 40.5 % (34.3-46.0); HEMOGLOBIN 12.4 g/dL (11.2-15.5); IMMATURE GRAN PERCENT AUTO 0.3 % (0.0-0.7); LYMPHOCYTES ABSOLUTE AUTO 1.26 K/uL (0.8-3.3); LYMPHOCYTES PERCENT AUTO 16.8 % (11.4-47.7); MEAN CORPUSCULAR HEMOGLOBIN 27.3 pg (31.6-35.5); MEAN CORPUSCULAR HGB CONC 30.6 g/dL (31.6-35.5); MEAN CORPUSCULAR VOLUME 89.2 fL (81.4-99.0); MONOCYTES ABSOLUTE AUTO 0.65 K/uL (0.20-0.90); MONOCYTES PERCENT AUTO 8.7 % (3.3-12.6); NEUTROPHILS ABSOLUTE AUTO 5.41 K/uL (1.0-7.6); NEUTROPHILS PERCENT AUTO 71.9 % (40.0-78.1); PLATELET COUNT,PLT 146 K/uL (130-375); PO2 VENOUS 33.8 mm/Hg; RED BLOOD CELL COUNT 4.54 M/uL (3.77-5.24); WHITE BLOOD CELL COUNT,WBC 7.5 K/uL (3.2-11.0)
[2023-09-01 17:44] LABS: IMMATURE GRAN ABSOLUTE AUTO 0.02 K/uL (0.00-0.23)
[2023-09-01 17:51] LABS: CORONAVIRUS COVID-19 NAA NEGATIVE (NEGATIVE); INFLUENZA A NAA NEGATIVE (NEGATIVE); INFLUENZA B NAA NEGATIVE (NEGATIVE); RESPIRATORY SYNCYTIAL VIR NAA NEGATIVE (NEGATIVE)
[2023-09-01 18:07] LABS: A/G RATIO 1.1 (1.2-2.2); ALANINE AMINOTRANSFERASE,ALT 25 U/L (12-78); ALBUMIN 3.5 g/dL (3.4-5.0); ALKALINE PHOSPHATASE 73 U/L (46-116); ANION GAP 6.6 mmol/L (5.0-14.0); ASPARTATE AMNIOTRANSFERASE,AST 18 U/L (15-37); BILIRUBIN TOTAL 0.4 mg/dL (0.2-1.0); BLOOD UREA NITROGEN,BUN 18 mg/dL (7-18); CALCIUM 9.7 mg/dL (8.5-10.1); CARBON DIOXIDE,CO2 42 mmol/L (21-32); CHLORIDE,CL 100 mmol/L (100-108); CREATININE 0.9 mg/dL (0.6-1.0); EST CRCL DRUG DOSING (CG) 50.86 mL/min; ESTIMATED GFR 71 mL/min (>60); GLUCOSE RANDOM 114 mg/dL (74-106); POTASSIUM,K 4.6 mmol/L (3.6-5.2); PROTEIN TOTAL,TP 6.7 g/dL (6.4-8.2); SODIUM,NA 144 mmol/L (140-148)
== END 2023-09-01 18:51 | disposition home or self-care (01) ==
LOC: JP.ED 16:08
DX: J44.1 Chronic obstructive pulmonary disease with (acute) exacerbation (principal); I10 Essential (primary) hypertension; Z90.49 Acquired absence of other specified parts of digestive tract; Z91.048 Other nonmedicinal substance allergy status; Z91.041 Radiographic dye allergy status; Z88.1 Allergy status to other antibiotic agents; Z88.8 Allergy status to other drugs, medicaments and biological substances; Z79.51 Long term (current) use of inhaled steroids; Z87.891 Personal history of nicotine dependence; Z79.899 Other long term (current) drug therapy
CPT/HCPCS: 0241U; 36415; 71046; 80053; 82803; 83605; 83735; 84145; 85025; 94640; 99285; J7620

== ENCOUNTER 2023-11-26 14:29 | Inpatient (IN) | payer MEDICARE ==
[2023-11-26] MEDS: Sodium Chloride 0.9% 1,000 ML IV ONE (15:21)
[2023-11-26] MEDS: methylPREDNISolone Sodium Succinate 125 MG/2 ML SDV IVPUSH ONE ×2 (15:21→22:49)
[2023-11-26] MEDS: Albuterol/Ipratropium 3.0-0.5 MG/3 ML Neb Soln NEB ONE (15:21)
[2023-11-26 15:24] LABS: BASE EXCESS VENOUS 9.7 mm/L; BICARBONATE,VENOUS 39.3 mmol/L; CARBOXYHEMOGLOBIN 2.9 % (0.0-1.6); METHEMOGLOBIN 0.8 %; O2 SATURATION VENOUS 93.9; OXYHEMOGLOBIN 90.4 %; PCO2 VENOUS 83.7 mm/Hg; PH,VENOUS 7.293 (7.350-7.450); PO2 VENOUS 70.6 mm/Hg; TOTAL HEMOGLOBIN 13.2 g/dL (12.0-16.0)
[2023-11-26 15:25] LABS: BASOPHILS ABSOLUTE AUTO 0.02 K/uL (0.00-0.10); BASOPHILS PERCENT AUTO 0.5 % (0.1-1.3); EOSINOPHILS ABSOLUTE AUTO 0.03 K/uL (0.00-0.40); EOSINOPHILS PERCENT AUTO 0.7 % (0.0-5.4); HEMATOCRIT 39.7 % (34.3-46.0); HEMOGLOBIN 12.9 g/dL (11.2-15.5); IMMATURE GRAN ABSOLUTE AUTO 0.06 K/uL (0.00-0.23); IMMATURE GRAN PERCENT AUTO 1.5 % (0.0-0.7); LYMPHOCYTES ABSOLUTE AUTO 0.39 K/uL (0.8-3.3); LYMPHOCYTES PERCENT AUTO 9.7 % (11.4-47.7); MEAN CORPUSCULAR HEMOGLOBIN 28.4 pg (31.6-35.5); MEAN CORPUSCULAR HGB CONC 32.5 g/dL (31.6-35.5); MEAN CORPUSCULAR VOLUME 87.4 fL (81.4-99.0); MONOCYTES ABSOLUTE AUTO 0.32 K/uL (0.20-0.90); NEUTROPHILS ABSOLUTE AUTO 3.19 K/uL (1.0-7.6); NEUTROPHILS PERCENT AUTO 79.6 % (40.0-78.1); PLATELET COUNT,PLT 46 K/uL (130-375); RED BLOOD CELL COUNT 4.54 M/uL (3.77-5.24)
[2023-11-26 15:41] LABS: ANION GAP 3.4 mmol/L (5.0-14.0); C-REACTIVE PROTEIN 5.87 mg/dL (<0.50); CALCIUM 8.9 mg/dL (8.5-10.1); EST CRCL DRUG DOSING (CG) 45.78 mL/min; POTASSIUM,K 4.4 mmol/L (3.6-5.2)
[2023-11-26 15:49] LABS: LACTIC ACID 0.5 mmol/L (0.4-2.0)
[2023-11-26 17:01] LABS: LYME AB IgG Negative (Negative); LYME AB IgM Negative (Negative)
[2023-11-26] MEDS: Doxycycline 100 MG Cap PO ONE (17:17)
[2023-11-26] MEDS ORDERED: guaiFENesin/Dextromethorphan 100-10 MG/5 ML Soln 10 ML Cup PO PRN (17:24)
[2023-11-26] MEDS ORDERED: Acetaminophen 325 MG Tab PO PRN (17:24)
[2023-11-26] MEDS ORDERED: Benzonatate 100 MG Cap PO PRN (17:24)
[2023-11-26] MEDS ORDERED: Ondansetron 4 MG/2 ML SDV IV PRN (17:24)
[2023-11-26] MEDS ORDERED: Ondansetron 4 MG Tab.DIS PO PRN (17:24)
[2023-11-26] MEDS ORDERED: Magnesium Hydroxide 400 MG/5 ML Susp 30 ML Cup PO PRN (17:24)
[2023-11-26] MEDS ORDERED: Sennosides/Docusate Sodium 50-8.6 MG Tab PO PRN (17:24)
[2023-11-26] MEDS: cefTRIAXone 2 GM in Sodium Chloride 0.9% 50 ML IV SCH (18:01)
[2023-11-26] MEDS: Gabapentin 300 MG Cap PO SCH (20:30)
[2023-11-26] MEDS: Albuterol/Ipratropium 3.0-0.5 MG/3 ML Neb Soln NEB SCH (20:30)
[2023-11-26] MEDS: Hydroxychloroquine 200 MG Tab PO SCH (20:30)
[2023-11-26] MEDS: Lactobacillus Rhamnosus GG (Probiotic) Cap PO SCH (20:30)
[2023-11-27 05:31] LABS: HEMATOCRIT 42.6 % (34.3-46.0); HEMOGLOBIN 13.4 g/dL (11.2-15.5); MEAN CORPUSCULAR HEMOGLOBIN 27.5 pg (31.6-35.5); MEAN CORPUSCULAR HGB CONC 31.5 g/dL (31.6-35.5); MEAN CORPUSCULAR VOLUME 87.5 fL (81.4-99.0); RED BLOOD CELL COUNT 4.87 M/uL (3.77-5.24); WHITE BLOOD CELL COUNT,WBC 3.5 K/uL (3.2-11.0)
[2023-11-27 05:58] LABS: CALCIUM 8.9 mg/dL (8.5-10.1); CREATININE 0.9 mg/dL (0.6-1.0); EST CRCL DRUG DOSING (CG) 44.17 mL/min; MAGNESIUM 1.5 mg/dL (1.8-2.4); POTASSIUM,K 4.7 mmol/L (3.6-5.2)
[2023-11-27 06:12] LABS: ANION GAP 8.7 mmol/L (5.0-14.0)
[2023-11-27] MEDS: predniSONE 20 MG Tab PO SCH (08:06)
[2023-11-27] MEDS: Pantoprazole 40 MG Tab.CR PO SCH (08:06)
[2023-11-27] MEDS: Losartan 25 MG Tab PO SCH (08:07)
[2023-11-27] MEDS: Loratadine 10 MG Tab PO SCH (08:08)
[2023-11-27] MEDS: guaiFENesin 600 MG Tab.ER PO SCH (08:09)
[2023-11-27] MEDS: Doxycycline 100 MG Cap PO SCH (08:09)
[2023-11-27] MEDS: Magnesium Sulfate/Water 2 GM in Premix Bag 1 BAG IV SCH (08:55)
[2023-11-27] MEDS ORDERED: Acetaminophen/Caffeine 500-65 MG Tab PO PRN (10:26)
[2023-11-27] MEDS: Ketorolac 30 MG/ML SDV IVPUSH ONE (10:52)
[2023-11-28] MEDS: Albuterol 0.083% 2.5 MG/3 ML Neb Soln NEB PRN (03:18)
[2023-11-28] MEDS: Cefdinir 300 MG Cap PO SCH (20:37)
[2023-11-29 04:57] LABS: HEMATOCRIT 37.9 % (34.3-46.0); HEMOGLOBIN 11.7 g/dL (11.2-15.5); MEAN CORPUSCULAR HEMOGLOBIN 27.5 pg (31.6-35.5); MEAN CORPUSCULAR HGB CONC 30.9 g/dL (31.6-35.5); MEAN CORPUSCULAR VOLUME 89.2 fL (81.4-99.0); RED BLOOD CELL COUNT 4.25 M/uL (3.77-5.24); WHITE BLOOD CELL COUNT,WBC 7.4 K/uL (3.2-11.0)
[2023-11-29 05:13] LABS: CALCIUM 8.7 mg/dL (8.5-10.1); CREATININE 0.9 mg/dL (0.6-1.0); EST CRCL DRUG DOSING (CG) 52.2 mL/min; POTASSIUM,K 4.9 mmol/L (3.6-5.2)
[2023-11-29 05:27] LABS: ANION GAP 1.9 mmol/L (5.0-14.0)
[2023-11-29 23:12] LABS: ANAPLASMA PHAGOCYTOPHILUM PCR Detected; BABESIA MICROTI BY PCR Not Detected; BABESIA SPECIES BY PCR Not Detected; EHRLICHIA CHAFFEENSIS BY PCR Not Detected; EHRLICHIA EWINGII/CANIS BY PCR Not Detected; EHRLICHIA MURIS-LIKE BY PCR Not Detected
== END 2023-11-29 11:00 | disposition home or self-care (01) | DRG 189 ==
LOC: JP.ED 14:29 → JP.ICU 16:38
PROVIDERS: ADMIT Internal Medicine; ATTEND Internal Medicine
PROC: 4A033R1 Measurement of Arterial Saturation, Peripheral, Percutaneous Approach (ICD-10-PCS; principal; 2023-11-26)
DX: J96.21 Acute and chronic respiratory failure with hypoxia (principal); J44.1 Chronic obstructive pulmonary disease with (acute) exacerbation; J44.0 Chronic obstructive pulmonary disease with (acute) lower respiratory infection; J96.22 Acute and chronic respiratory failure with hypercapnia; J20.9 Acute bronchitis, unspecified; D69.6 Thrombocytopenia, unspecified; M32.9 Systemic lupus erythematosus, unspecified; I10 Essential (primary) hypertension; F41.9 Anxiety disorder, unspecified; Z88.1 Allergy status to other antibiotic agents; M19.90 Unspecified osteoarthritis, unspecified site; Z88.8 Allergy status to other drugs, medicaments and biological substances; Z90.49 Acquired absence of other specified parts of digestive tract; Z90.89 Acquired absence of other organs; Z91.041 Radiographic dye allergy status; Z98.49 Cataract extraction status, unspecified eye; Z98.890 Other specified postprocedural states; Z91.048 Other nonmedicinal substance allergy status; Z79.899 Other long term (current) drug therapy
CPT/HCPCS: 36415; 71046 ×2; 80048; 82803; 83605; 84145; 85025; 86140; 86618 ×2; 87040 ×2; 87468; 87469; 87484; 87798 ×3; 93005; 93010; 94640; 96361; 96374; 99285 ×2; J2919; J7030; 83735; 85027; 99222; 99232; 99238; A9270-GY; J0696; J1885; J3475; J3490; J7512; J7620

== ENCOUNTER 2024-08-21 08:48 | Inpatient (IN) | payer MEDICARE ==
[2024-08-21] MEDS: methylPREDNISolone Sodium Succinate 125 MG/2 ML SDV IVPUSH ONE (09:10)
[2024-08-21] MEDS: Albuterol 0.083% 2.5 MG/3 ML Neb Soln NEB ONE (09:10)
[2024-08-21] MEDS: Albuterol/Ipratropium 3.0-0.5 MG/3 ML Neb Soln NEB ONE (09:10)
[2024-08-21 09:19] LABS: BASE EXCESS ARTERIAL 13.6 mm/L; BICARBONATE,ARTERIAL 44.3 mmol/L (22.0-26.0); CARBOXYHEMOGLOBIN 2.6 % (0.0-1.6); O2 SATURATION ARTERIAL 56.2 % (95.0-98.0); OXYHEMOGLOBIN 54.2 %; TOTAL HEMOGLOBIN 11.7 g/dL (12.0-16.0)
[2024-08-21 09:31] LABS: BASOPHILS ABSOLUTE AUTO 0.04 K/uL (0.00-0.10); BASOPHILS PERCENT AUTO 0.5 % (0.1-1.3); EOSINOPHILS PERCENT AUTO 0.3 % (0.0-5.4); HEMATOCRIT 40.6 % (34.3-46.0); HEMOGLOBIN 11.9 g/dL (11.2-15.5); IMMATURE GRAN ABSOLUTE AUTO 0.06 K/uL (0.00-0.23); IMMATURE GRAN PERCENT AUTO 0.8 % (0.0-0.7); LYMPHOCYTES ABSOLUTE AUTO 0.49 K/uL (0.8-3.3); LYMPHOCYTES PERCENT AUTO 6.2 % (11.4-47.7); MEAN CORPUSCULAR HGB CONC 29.3 g/dL (31.6-35.5); MONOCYTES ABSOLUTE AUTO 0.48 K/uL (0.20-0.90); NEUTROPHILS ABSOLUTE AUTO 6.86 K/uL (1.0-7.6); NEUTROPHILS PERCENT AUTO 86.2 % (40.0-78.1); PLATELET COUNT,PLT 126 K/uL (130-375)
[2024-08-21 09:40] LABS: EOSINOPHILS ABSOLUTE AUTO 0.02 K/uL (0.00-0.40)
[2024-08-21 09:43] LABS: PO2 ARTERIAL 29.7 mmHg (75.0-100.0)
[2024-08-21 09:54] LABS: LACTIC ACID 0.6 mmol/L (0.4-2.0)
[2024-08-21 09:59] LABS: A/G RATIO 1.1 (1.2-2.2); ALANINE AMINOTRANSFERASE,ALT 19 U/L (12-78); ALBUMIN 3.6 g/dL (3.4-5.0); ALKALINE PHOSPHATASE 61 U/L (46-116); ASPARTATE AMNIOTRANSFERASE,AST 14 U/L (15-37); BILIRUBIN TOTAL 0.3 mg/dL (0.2-1.0); BLOOD UREA NITROGEN,BUN 17 mg/dL (7-18); CALCIUM 9.4 mg/dL (8.5-10.1); CARBON DIOXIDE,CO2 44 mmol/L (21-32); CHLORIDE,CL 100 mmol/L (100-108); EST CRCL DRUG DOSING (CG) 45.16 mL/min; ESTIMATED GFR 62 mL/min (>60); GLUCOSE RANDOM 117 mg/dL (74-106); PRO B-TYPE NATRIUR PEPT,BNPPRO 146 pg/mL (5-125); PROTEIN TOTAL,TP 6.9 g/dL (6.4-8.2); SODIUM,NA 146 mmol/L (140-148)
[2024-08-21 11:15] LABS: BASE EXCESS ARTERIAL 12.9 mm/L; BICARBONATE,ARTERIAL 43.6 mmol/L (22.0-26.0); CARBOXYHEMOGLOBIN 2.1 % (0.0-1.6); METHEMOGLOBIN 1.1 %; O2 SATURATION ARTERIAL 92.3 % (95.0-98.0); OXYHEMOGLOBIN 89.3 %; PO2 ARTERIAL 64.4 mmHg (75.0-100.0); TOTAL HEMOGLOBIN 11.9 g/dL (12.0-16.0)
[2024-08-21] MEDS: Doxycycline 100 MG in Sodium Chloride 0.9% 100 ML IV ONE (11:31)
[2024-08-21] MEDS: Levalbuterol HCl 1.25 MG/3 ML Neb NEB ONE ×2 (11:32→13:45)
[2024-08-21 13:25] LABS: BASE EXCESS ARTERIAL 13.7 mm/L; BICARBONATE,ARTERIAL 43.7 mmol/L (22.0-26.0); CARBOXYHEMOGLOBIN 1.9 % (0.0-1.6); METHEMOGLOBIN 1.2 %; OXYHEMOGLOBIN 55.2 %
[2024-08-21 13:32] LABS: PCO2 ARTERIAL 92.4 mmHg (35.0-42.0); PO2 ARTERIAL 30.7 mmHg (75.0-100.0)
[2024-08-21] MEDS ORDERED: LORazepam 2 MG/ML SDV IVPUSH PRN (15:12)
[2024-08-21] MEDS ORDERED: Sennosides/Docusate Sodium 50-8.6 MG Tab PO PRN (15:12)
[2024-08-21] MEDS ORDERED: Magnesium Hydroxide 400 MG/5 ML Susp 30 ML Cup PO PRN (15:12)
[2024-08-21] MEDS ORDERED: Ondansetron 4 MG Tab.DIS PO PRN (15:12)
[2024-08-21] MEDS ORDERED: Benzonatate 100 MG Cap PO PRN (15:12)
[2024-08-21] MEDS ORDERED: Melatonin 3 MG Tab PO PRN (15:12)
[2024-08-21] MEDS ORDERED: guaiFENesin/Dextromethorphan 100-10 MG/5 ML Soln 10 ML Cup PO PRN (15:12)
[2024-08-21] MEDS ORDERED: Ondansetron 4 MG/2 ML SDV IV PRN (15:12)
[2024-08-21] MEDS: Albuterol/Ipratropium 3.0-0.5 MG/3 ML Neb Soln NEB SCH (15:36)
[2024-08-21] MEDS: cefTRIAXone 2 GM in Sodium Chloride 0.9% 50 ML IV SCH (16:00)
[2024-08-21] MEDS: Magnesium Sulf/Wat 2 GM/50 mL 2 GM in Premix Bag 1 BAG IV ONE (16:58)
[2024-08-21] MEDS: Losartan 25 MG Tab PO SCH (17:07)
[2024-08-21] MEDS: methylPREDNISolone Sodium Succinate 125 MG/2 ML SDV IVPUSH SCH (17:14)
[2024-08-21] MEDS: Acetaminophen 325 MG Tab PO PRN (19:09)
[2024-08-21] MEDS: Hydroxychloroquine 200 MG Tab PO SCH (20:31)
[2024-08-21] MEDS: Doxycycline 100 MG Cap PO SCH (20:31)
[2024-08-21] MEDS: Lactobacillus Rhamnosus GG (Probiotic) Cap PO SCH (20:31)
[2024-08-21] MEDS: Gabapentin 300 MG Cap PO SCH (20:31)
[2024-08-22] MEDS: Albuterol 0.083% 2.5 MG/3 ML Neb Soln NEB PRN (01:16)
[2024-08-22 05:42] LABS: HEMATOCRIT 38.6 % (34.3-46.0); HEMOGLOBIN 11.8 g/dL (11.2-15.5); MEAN CORPUSCULAR HEMOGLOBIN 29.1 pg (31.6-35.5); MEAN CORPUSCULAR HGB CONC 30.6 g/dL (31.6-35.5); MEAN CORPUSCULAR VOLUME 95.1 fL (81.4-99.0); RED BLOOD CELL COUNT 4.06 M/uL (3.77-5.24); WHITE BLOOD CELL COUNT,WBC 10.5 K/uL (3.2-11.0)
[2024-08-22 05:58] LABS: CALCIUM 9.4 mg/dL (8.5-10.1); CREATININE 1.1 mg/dL (0.6-1.0); EST CRCL DRUG DOSING (CG) 41.04 mL/min; POTASSIUM,K 4.1 mmol/L (3.6-5.2)
[2024-08-22 05:59] LABS: ANION GAP 8.1 mmol/L (5.0-14.0)
[2024-08-22] MEDS: Pantoprazole 40 MG Tab.CR PO SCH (07:35)
[2024-08-22] MEDS: guaiFENesin 600 MG Tab.ER PO SCH (08:08)
[2024-08-22] MEDS: predniSONE 20 MG Tab PO SCH (08:08)
[2024-08-22] MEDS: Loratadine 10 MG Tab PO SCH (08:08)
[2024-08-22 08:20] LABS: BICARBONATE,ARTERIAL 40.4 mmol/L (22.0-26.0); METHEMOGLOBIN 0.8 %; O2 SATURATION ARTERIAL 97.4 % (95.0-98.0); OXYHEMOGLOBIN 94.7 %; PCO2 ARTERIAL 67.6 mmHg (35.0-42.0); PO2 ARTERIAL 87.6 mmHg (75.0-100.0); TOTAL HEMOGLOBIN 12.1 g/dL (12.0-16.0)
[2024-08-23 06:10] LABS: HEMOGLOBIN 11.5 g/dL (11.2-15.5); MEAN CORPUSCULAR HEMOGLOBIN 29.2 pg (31.6-35.5); MEAN CORPUSCULAR HGB CONC 30.3 g/dL (31.6-35.5); MEAN CORPUSCULAR VOLUME 96.4 fL (81.4-99.0); RED BLOOD CELL COUNT 3.94 M/uL (3.77-5.24)
[2024-08-23 06:28] LABS: A/G RATIO 1.1 (1.2-2.2); ALANINE AMINOTRANSFERASE,ALT 17 U/L (12-78); ALBUMIN 3.1 g/dL (3.4-5.0); ALKALINE PHOSPHATASE 48 U/L (46-116); ASPARTATE AMNIOTRANSFERASE,AST 16 U/L (15-37); BILIRUBIN TOTAL 0.2 mg/dL (0.2-1.0); BLOOD UREA NITROGEN,BUN 30 mg/dL (7-18); CALCIUM 9.2 mg/dL (8.5-10.1); CARBON DIOXIDE,CO2 41 mmol/L (21-32); CHLORIDE,CL 102 mmol/L (100-108); EST CRCL DRUG DOSING (CG) 45.14 mL/min; ESTIMATED GFR 62 mL/min (>60); GLUCOSE RANDOM 95 mg/dL (74-106); SODIUM,NA 145 mmol/L (140-148)
[2024-08-24 06:06] LABS: HEMATOCRIT 41.2 % (34.3-46.0); HEMOGLOBIN 12.3 g/dL (11.2-15.5); MEAN CORPUSCULAR HEMOGLOBIN 28.9 pg (31.6-35.5); MEAN CORPUSCULAR HGB CONC 29.9 g/dL (31.6-35.5); MEAN CORPUSCULAR VOLUME 96.9 fL (81.4-99.0); RED BLOOD CELL COUNT 4.25 M/uL (3.77-5.24); WHITE BLOOD CELL COUNT,WBC 10.1 K/uL (3.2-11.0)
[2024-08-24 06:31] LABS: A/G RATIO 1.1 (1.2-2.2); ALANINE AMINOTRANSFERASE,ALT 23 U/L (12-78); ALBUMIN 3.3 g/dL (3.4-5.0); ALKALINE PHOSPHATASE 53 U/L (46-116); ASPARTATE AMNIOTRANSFERASE,AST 16 U/L (15-37); BILIRUBIN TOTAL 0.3 mg/dL (0.2-1.0); BLOOD UREA NITROGEN,BUN 25 mg/dL (7-18); CALCIUM 9.3 mg/dL (8.5-10.1); CARBON DIOXIDE,CO2 41 mmol/L (21-32); CHLORIDE,CL 103 mmol/L (100-108); EST CRCL DRUG DOSING (CG) 45.14 mL/min; ESTIMATED GFR 62 mL/min (>60); GLUCOSE RANDOM 90 mg/dL (74-106); PROTEIN TOTAL,TP 6.4 g/dL (6.4-8.2); SODIUM,NA 145 mmol/L (140-148)
[2024-08-24] MEDS: predniSONE 20 MG Tab PO SCH (08:54)
== END 2024-08-24 13:15 | disposition home or self-care (01) | DRG 189 ==
LOC: JP.ED 08:48 → JP.ICU 14:31 → JP.MS 08-22 11:57
PROVIDERS: ADMIT Internal Medicine; ATTEND Hospitalist
PROC: 5A09457 Assistance with Respiratory Ventilation, 24-96 Consecutive Hours, Continuous Positive Airway Pressure (ICD-10-PCS; principal; 2024-08-21)
PROC: 4A133R1 Monitoring of Arterial Saturation, Peripheral, Percutaneous Approach (ICD-10-PCS; 2024-08-21)
DX: J96.02 Acute respiratory failure with hypercapnia (principal); J96.11 Chronic respiratory failure with hypoxia; J96.21 Acute and chronic respiratory failure with hypoxia; J44.1 Chronic obstructive pulmonary disease with (acute) exacerbation; J44.0 Chronic obstructive pulmonary disease with (acute) lower respiratory infection; J96.22 Acute and chronic respiratory failure with hypercapnia; Z91.048 Other nonmedicinal substance allergy status; J20.9 Acute bronchitis, unspecified; H54.7 Unspecified visual loss; I10 Essential (primary) hypertension; M19.90 Unspecified osteoarthritis, unspecified site; M32.9 Systemic lupus erythematosus, unspecified; F41.9 Anxiety disorder, unspecified; Z88.1 Allergy status to other antibiotic agents; Z88.8 Allergy status to other drugs, medicaments and biological substances; Z91.041 Radiographic dye allergy status; Z79.52 Long term (current) use of systemic steroids; Z79.899 Other long term (current) drug therapy; Z85.79 Personal history of other malignant neoplasms of lymphoid, hematopoietic and related tissues; Z86.16 Personal history of COVID-19; Z90.89 Acquired absence of other organs; Z90.49 Acquired absence of other specified parts of digestive tract; Z98.890 Other specified postprocedural states; Z98.49 Cataract extraction status, unspecified eye; Z87.891 Personal history of nicotine dependence; Z99.81 Dependence on supplemental oxygen
CPT/HCPCS: 36415; 36600; 71045; 71045-26; 80048; 80053; 82803; 83605; 83735; 83880; 85025; 85027; 87040; 87428-QW; 93005; 93010; 94640; 94660; 96365; 96375; 99222; 99231; 99232; 99239; 99285; 99285-25; A9270-GY; J0696; J2919; J3475; J3490; J7512; J7612-GY

== ENCOUNTER 2024-09-03 17:12 | Emergency (ER) | payer MEDICARE ==
[2024-09-03 18:17] LABS: BASOPHILS ABSOLUTE AUTO 0.03 K/uL (0.00-0.10); BASOPHILS PERCENT AUTO 0.4 % (0.1-1.3); EOSINOPHILS PERCENT AUTO 1.4 % (0.0-5.4); HEMATOCRIT 37.5 % (34.3-46.0); HEMOGLOBIN 11.3 g/dL (11.2-15.5); IMMATURE GRAN PERCENT AUTO 0.3 % (0.0-0.7); LYMPHOCYTES ABSOLUTE AUTO 1.04 K/uL (0.8-3.3); LYMPHOCYTES PERCENT AUTO 14.4 % (11.4-47.7); MEAN CORPUSCULAR HEMOGLOBIN 29.3 pg (31.6-35.5); MEAN CORPUSCULAR HGB CONC 30.1 g/dL (31.6-35.5); MEAN CORPUSCULAR VOLUME 97.2 fL (81.4-99.0); MONOCYTES ABSOLUTE AUTO 0.54 K/uL (0.20-0.90); MONOCYTES PERCENT AUTO 7.5 % (3.3-12.6); NEUTROPHILS ABSOLUTE AUTO 5.49 K/uL (1.0-7.6); PLATELET COUNT,PLT 124 K/uL (130-375); RED BLOOD CELL COUNT 3.86 M/uL (3.77-5.24); WHITE BLOOD CELL COUNT,WBC 7.2 K/uL (3.2-11.0)
[2024-09-03 18:26] LABS: IMMATURE GRAN ABSOLUTE AUTO 0.02 K/uL (0.00-0.23)
[2024-09-03 18:48] LABS: A/G RATIO 1.1 (1.2-2.2); ALANINE AMINOTRANSFERASE,ALT 21 U/L (12-78); ALBUMIN 3.3 g/dL (3.4-5.0); ALKALINE PHOSPHATASE 50 U/L (46-116); ASPARTATE AMNIOTRANSFERASE,AST 13 U/L (15-37); BILIRUBIN TOTAL 0.4 mg/dL (0.2-1.0); BLOOD UREA NITROGEN,BUN 16 mg/dL (7-18); CALCIUM 9.2 mg/dL (8.5-10.1); CHLORIDE,CL 99 mmol/L (100-108); EST CRCL DRUG DOSING (CG) 45.16 mL/min; ESTIMATED GFR 62 mL/min (>60); GLUCOSE RANDOM 96 mg/dL (74-106); POTASSIUM,K 4.6 mmol/L (3.6-5.2); PROTEIN TOTAL,TP 6.2 g/dL (6.4-8.2); SODIUM,NA 144 mmol/L (140-148)
[2024-09-03 18:58] LABS: ANION GAP 1.6 mmol/L (5.0-14.0); C-REACTIVE PROTEIN < 0.50 mg/dL (<0.50); CARBON DIOXIDE,CO2 48 mmol/L (21-32)
[2024-09-03] MEDS: Albuterol/Ipratropium 3.0-0.5 MG/3 ML Neb Soln NEB ONE (19:30)
[2024-09-03 19:58] LABS: BASE EXCESS VENOUS 18.8 mm/L; BICARBONATE,VENOUS 47.8 mmol/L; CARBOXYHEMOGLOBIN 2.4 % (0.0-1.6); METHEMOGLOBIN 1.1 %; O2 SATURATION VENOUS 49.6; OXYHEMOGLOBIN 47.9 %; PCO2 VENOUS 84.8 mm/Hg; PO2 VENOUS 26.2 mm/Hg; TOTAL HEMOGLOBIN 11.6 g/dL (12.0-16.0)
[2024-09-03 20:37] LABS: BASE EXCESS ARTERIAL 17.4 mm/L; METHEMOGLOBIN 0.9 %; O2 SATURATION ARTERIAL 97.2 % (95.0-98.0); OXYHEMOGLOBIN 94.4 %; PO2 ARTERIAL 80.3 mmHg (75.0-100.0); TOTAL HEMOGLOBIN 11.3 g/dL (12.0-16.0)
[2024-09-03 20:39] LABS: PCO2 ARTERIAL 70.5 mmHg (35.0-42.0)
== END 2024-09-03 22:30 | disposition home or self-care (01) ==
LOC: JP.ED 17:12
DX: R11.0 Nausea (principal); J45.909 Unspecified asthma, uncomplicated; Z91.041 Radiographic dye allergy status; Z88.8 Allergy status to other drugs, medicaments and biological substances; Z79.899 Other long term (current) drug therapy; Z86.16 Personal history of COVID-19
CPT/HCPCS: 36415; 36600; 80053; 82803; 83690; 85025; 86140; 87428; 94640; 99284; A9270

== ENCOUNTER 2024-09-04 20:46 | Emergency (ER) | payer MEDICARE ==
[2024-09-04] MEDS: Sodium Chloride 0.9% 1,000 ML IV ONE (21:00)
[2024-09-04 21:06] LABS: BASOPHILS ABSOLUTE AUTO 0.04 K/uL (0.00-0.10); BASOPHILS PERCENT AUTO 0.3 % (0.1-1.3); EOSINOPHILS PERCENT AUTO 0.1 % (0.0-5.4); HEMATOCRIT 41.6 % (34.3-46.0); HEMOGLOBIN 12.3 g/dL (11.2-15.5); IMMATURE GRAN ABSOLUTE AUTO 0.08 K/uL (0.00-0.23); IMMATURE GRAN PERCENT AUTO 0.5 % (0.0-0.7); LYMPHOCYTES ABSOLUTE AUTO 0.48 K/uL (0.8-3.3); LYMPHOCYTES PERCENT AUTO 3.2 % (11.4-47.7); MEAN CORPUSCULAR HEMOGLOBIN 29.6 pg (31.6-35.5); MEAN CORPUSCULAR HGB CONC 29.6 g/dL (31.6-35.5); MONOCYTES ABSOLUTE AUTO 0.76 K/uL (0.20-0.90); NEUTROPHILS ABSOLUTE AUTO 13.79 K/uL (1.0-7.6); NEUTROPHILS PERCENT AUTO 90.9 % (40.0-78.1); PLATELET COUNT,PLT 163 K/uL (130-375); RED BLOOD CELL COUNT 4.16 M/uL (3.77-5.24); WHITE BLOOD CELL COUNT,WBC 15.2 K/uL (3.2-11.0)
[2024-09-04 21:09] LABS: EOSINOPHILS ABSOLUTE AUTO 0.02 K/uL (0.00-0.40)
[2024-09-04 21:14] LABS: BASE EXCESS ARTERIAL 10.3 mm/L; BICARBONATE,ARTERIAL 45.4 mmol/L (22.0-26.0); CARBOXYHEMOGLOBIN 1.9 % (0.0-1.6); O2 SATURATION ARTERIAL 98.2 % (95.0-98.0); OXYHEMOGLOBIN 95.4 %; TOTAL HEMOGLOBIN 12.2 g/dL (12.0-16.0)
[2024-09-04 21:28] LABS: POTASSIUM,K 4.3 mmol/L (3.6-5.2)
[2024-09-04] MEDS ORDERED: Norepinephrine 8 MG in Dextrose 5% in Water 250 ML IV SCH ×3 (21:30→22:15)
[2024-09-04] MEDS: Propofol 200 MG/20 ML SDV IVPUSH ONE (21:34)
[2024-09-04 21:40] LABS: LACTIC ACID 2.1 mmol/L (0.4-2.0)
[2024-09-04] MEDS: Norepinephrine Bit/D5W Premix 4 MG in Premix Bag 1 BAG IV SCH (21:41)
[2024-09-04] MEDS ORDERED: Naloxone 0.4 MG/ML SDV IVPUSH PRN (21:48)
[2024-09-04 21:49] LABS: A/G RATIO 1.1 (1.2-2.2); ALANINE AMINOTRANSFERASE,ALT 44 U/L (12-78); ALBUMIN 3.6 g/dL (3.4-5.0); ALKALINE PHOSPHATASE 62 U/L (46-116); ASPARTATE AMNIOTRANSFERASE,AST 34 U/L (15-37); BILIRUBIN TOTAL 0.4 mg/dL (0.2-1.0); BLOOD UREA NITROGEN,BUN 29 mg/dL (7-18); CALCIUM 9.2 mg/dL (8.5-10.1); CARBON DIOXIDE,CO2 42 mmol/L (21-32); CHLORIDE,CL 98 mmol/L (100-108); CREATININE 2.4 mg/dL (0.6-1.0); EST CRCL DRUG DOSING (CG) 18.81 mL/min; ESTIMATED GFR 22 mL/min (>60); GLUCOSE RANDOM 187 mg/dL (74-106); PROTEIN TOTAL,TP 6.9 g/dL (6.4-8.2); SODIUM,NA 143 mmol/L (140-148)
[2024-09-04 21:50] LABS: ANION GAP 7.3 mmol/L (5.0-14.0)
[2024-09-04] MEDS: propofoL 1,000 MG/100 ML 100 ML IV SCH (21:50)
[2024-09-04 21:51] LABS: C-REACTIVE PROTEIN < 0.50 mg/dL (<0.50)
[2024-09-04] MEDS: Heparin Sodium 5,000 UNITS in Sodium Chloride 0.9% 500 ML IV SCH (22:10)
[2024-09-04] MEDS ORDERED: Vasopressin 100 UNITS in Dextrose 5% in Water 245 ML IV SCH (22:30)
[2024-09-04] MEDS: Sodium Chloride 0.9% 1,000 ML IV SCH (22:38)
[2024-09-04 22:52] LABS: APPEARANCE,URINE SLIGHTLY CLOUDY (CLEAR); BILIRUBIN,URINE SMALL (NEGATIVE); COLOR,URINE YELLOW (YELLOW); GLUCOSE,URINE NEGATIVE (NEGATIVE); KETONES,URINE NEGATIVE (NEGATIVE); LEUKOCYTE ESTERASE,URINE NEGATIVE (NEGATIVE); NITRITE,URINE NEGATIVE (NEGATIVE); OCCULT BLOOD,URINE NEGATIVE (NEGATIVE); PROTEIN,URINE 100 mg/dL (NEGATIVE); UROBILINOGEN,URINE 0.2 EU/dL (0.2-1.0)
[2024-09-04 22:57] LABS: AMORPHOUS SEDIMENT,URINE NOT SEEN; BACTERIA,URINE FEW; EPITHELIAL CELLS,URINE FEW; MUCUS,URINE MANY; RBC,URINE 0-5 (0-5); WBC,URINE 0-5 (0-5)
[2024-09-04 23:05] LABS: BASE EXCESS ARTERIAL 7.6 mm/L; BICARBONATE,ARTERIAL 37.2 mmol/L (22.0-26.0); CARBOXYHEMOGLOBIN 2.3 % (0.0-1.6); METHEMOGLOBIN 0.9 %; OXYHEMOGLOBIN 96.4 %; TOTAL HEMOGLOBIN 11.6 g/dL (12.0-16.0)
[2024-09-04 23:07] LABS: O2 SATURATION ARTERIAL > 99.3 % (95.0-98.0); PCO2 ARTERIAL 87.4 mmHg (35.0-42.0)
[2024-09-04] MEDS: propofoL 1,000 MG/100 ML 100 ML ONE (23:54)
[2024-09-04] MEDS: Rocuronium 50 MG/5 ML Vial ONE (23:55)
[2024-09-05] MEDS: Cefepime 2 GM in Sodium Chloride 0.9% 50 ML IV ONE
[2024-09-05] MEDS: VANCOmycin 1.75 GM in Sodium Chloride 0.9% 250 ML IV ONE (00:44)
[2024-09-05] MEDS: fentaNYL 100 MCG/2 ML SDV IVPUSH ONE (00:44)
== END 2024-09-05 00:41 | disposition other institution (70) ==
LOC: JP.ED 20:46
DX: J96.22 Acute and chronic respiratory failure with hypercapnia (principal); J96.21 Acute and chronic respiratory failure with hypoxia; I10 Essential (primary) hypertension; J45.909 Unspecified asthma, uncomplicated; Z91.041 Radiographic dye allergy status; Z88.8 Allergy status to other drugs, medicaments and biological substances; Z79.899 Other long term (current) drug therapy; Z86.16 Personal history of COVID-19; Z90.49 Acquired absence of other specified parts of digestive tract
CPT/HCPCS: 36415; 36600; 51702; 71045; 80053; 81001; 82803; 83605; 84484; 85025; 86140; 87040; 93005; 96361; 96365; 96366; 96368; 99285; J0692; J1644; J2704; J7030; J7040; 31500; 36620